=== PATIENT | male | born 1945 | race Caucasian/White ===

== ENCOUNTER 2019-06-19 13:17 | Inpatient (IN) | payer OTHER ==
[2019-06-19] MEDS ORDERED: ACETAMINOPHEN 500 MG TAB ONE (13:46)
[2019-06-19 15:29] LABS: Urine Bacteria <20 /HPF (NONE SEEN); Urine Culture Reflex Order REFLEXED; Urine Mucus 1+ /HPF (NONE SEEN); Urine RBC <5 /HPF (NONE SEEN)
[2019-06-19 16:53] LABS: Absolute Lymphocytes (CBC) 0.8 K/uL (0.7-4.9); Basophils % 0.2 % (0-1.3); Hematocrit 43.9 % (39.6-49.0); Lymphocytes % 5.9 % (15.3-44.8); MPV 7.3 fL (7.6-11.3); RBC Red Blood Cell Count 4.59 M/uL (4.33-5.43)
[2019-06-19 17:03] LABS: Albumin 3.9 g/dL (3.4-5.0); Bilirubin Total 0.4 mg/dL (0.2-1.0); Potassium 3.9 mmol/L (3.5-5.1); Protein, Total 7.9 g/dL (6.4-8.2)
[2019-06-19 17:37] LABS: Urine Bacteria 20-50 /HPF (NONE SEEN); Urine Culture Reflex Order NOT NEEDED; Urine Mucus 1+ /HPF (NONE SEEN); Urine RBC <5 /HPF (NONE SEEN)
[2019-06-19] MEDS ORDERED: Levofloxacin 750mg IV 750 MG/150 ML BAG IV ONE (17:39)
--- NOTE | 2019-06-19 17:40 | RAD REPORT ---
EXAM DESCRIPTION: RAD - Chest Single View - 06/19/2019 4:58 pm CLINICAL HISTORY: ALL OVER PAIN Chest pain. COMPARISON: No comparisons FINDINGS: Portable technique limits examination quality. The lungs are grossly clear. The heart is normal in size. No displaced fractures. IMPRESSION: No acute intrathoracic process suspected.
[2019-06-19] MEDS ORDERED: ACETAMINOPHEN 500 MG TAB PO PRN (20:32)
[2019-06-19] MEDS ORDERED: ONDANSETRON 4 MG/2 ML VIAL IV PRN (20:32)
[2019-06-19] MEDS ORDERED: MORPHINE 2 MG/ML SYR IV PRN (20:32)
[2019-06-19] MEDS ORDERED: CEFTRIAXONE 1 GM/NS 50 ML 1 GM/50 ML BAG IV SCH (21:00)
--- NOTE | 2019-06-19 21:18 | P.HP ---
Certification for Inpatient Patient admitted to: Observation With expected LOS: <2 Midnights Patient will require the following post-hospital care: None Practitioner: I am a practitioner with admitting privileges, knowledge of patient current condition, hospital course, and medical plan of care. Services: Services provided to patient in accordance with Admission requirements found in Title 42 Section 412.3 of the Code of Federal Regulations Patient History Date of Service: 06/19/19 Reason for admission: UTI/Fever/sepsis History of Present Illness: Patient is a 73-year-old gentleman who came to the hospital with fever and dysuria. He has been having some pain and burning when urinating. Patient had a leukocytosis, and his procalcitonin level was elevated. Patient is also having some flank tenderness. Patient with multiple comorbidities and he will be admitted to the hospital for further evaluation. Will continue monitoring his sepsis markers and make sure his procalcitonin level is trending downward prior to discharge. Allergies Penicillins Allergy (Verified 06/19/19 15:57) Hives Home Medications: Amlodipine [Norvasc*] 5 mg PO DAILY 06/19/19 Escitalopram Oxalate [Lexapro] 10 mg PO DAILY 06/19/19 Metoprolol Tartrate [Lopressor*] 50 mg PO DAILY 06/19/19 Trazodone [Desyrel*] 50 mg PO BEDTIME 06/19/19 Sulfamethoxazole/Trimethoprim [Bactrim 400-80 mg Tablet] 1 each PO Q12H #14 tablet 06/21/19 - Past Medical/Surgical History -: Depression -: Hypertension -: Arrhythmia -: Left shoulder surgery - Family History Father Medical History: Stroke Mother Medical History: Heart disease - Social History Smoking Status: Never smoker Alcohol use: No CD- Drugs: No Review of Systems 10-point ROS is otherwise unremarkable Physical Examination - Vital Signs Temperature: 99 F Blood Pressure: 100/70 Pulse: 110 Respirations: 18 Pulse Ox (%): 94 - Physical Exam General: Alert, In no apparent distress, Oriented x3 HEENT: Atraumatic, Normocephalic Neck: Supple, 2+ carotid pulse no bruit, JVD not distended, No Thyromegaly Respiratory: Clear to auscultation bilaterally, Normal air movement Cardiovascular: Regular rate/rhythm, Normal S1 S2, No murmurs Gastrointestinal: Normal bowel sounds, Soft and benign, Non-distended, No tenderness Musculoskeletal: No clubbing, No swelling, Tenderness (Flank tenderness) Integumentary: No rashes, No breakdown Neurological: Normal gait, Normal speech, Normal strength at 5/5 x4 extr, Normal tone, Sensation intact, Cranial nerves 3-12 intact - Studies Laboratory Data (last 24 hrs) 06/19/19 16:30: Sodium 131 L, Potassium 3.9, BUN 19 H, Creatinine 1.00, Glucose 125 H, Total Bilirubin 0.4, AST 17, ALT 24, Alkaline Phosphatase 77 06/19/19 16:30: WBC 14.0 H, Hgb 14.6, Hct 43.9, Plt Count 224 Assessment & Plan - Problems (Diagnosis) (1) UTI (urinary tract infection) Current Visit: Yes Status: Acute (2) Sepsis Current Visit: Yes Status: Acute (3) Fever Current Visit: Yes Status: Acute (4) Elevated procalcitonin Current Visit: Yes Status: Acute (5) Leukocytosis Current Visit: Yes Status: Acute - Plan Plan: 1. IV hydration 2. IV antibiotics 3. Recheck procalcitonin level 4. Await blood culture and urine culture results; concerning that patient may be bacteremic with procalcitonin level being elevated. 5. Strict blood pressure and blood sugar control 6. Monitor hemodynamics closely 7. GI and DVT prophylaxis Discharge Plan: Home Plan to discharge in: Greater than 2 days - Advance Directives Does patient have a Living Will: No Does patient have a Durable POA for Healthcare: No - Code Status/Comfort Care Code Status Assessed: Yes Code Status: Full Code Critical Care: No Time Spent Managing PTS Care (In Minutes): 45
[2019-06-19 23:11] VITALS: BMI 26.6
[2019-06-19] MEDS: NA CHLORIDE 0.9% 1,000 ML IV SCH (23:32)
[2019-06-19] MEDS ORDERED: CEFTRIAXONE/SWI 1gm 1 GM/10 ML SYR ONE (23:36)
[2019-06-20] MEDS ORDERED: TRAZODONE 50 MG TABLET PO ONE (00:46)
--- NOTE | 2019-06-20 03:44 | ER ---
Nurse's Notes [facility] Name: Will Zavala Age: 73 yrs Sex: Male : 1945 Arrival Date: 06/19/2019 Time: 13:21 Bed 6 Private MD: Diagnosis: Urinary tract infection, site not specified;Fever, unspecified Presentation: 06/18 13:26 Chief complaint: Spouse and/or significant other states: Fever, body aches and burning jl7 with urination since this morning, denies cough, denies N/V/D. Coronavirus screen: Proceed with normal triage. Patient denies a cough. Patient denies shortness of breath or difficulty breathing. Patient reports a measured and/or subjective temperature greater than 100.4F. Patient denies travel on a cruise ship or to a country the [facility] currently lists as an affected area. Patient denies contact with known and/or suspected case of COVID-19. Ebola Screen: No symptoms or risks identified at this time. Initial Sepsis Screen: Does the patient meet any 2 criteria? No. Patient's initial sepsis screen is negative. Does the patient have a suspected source of infection? Yes: Dysuria/Frequency/Urgency/UTI. Risk Assessment: Do you want to hurt yourself or someone else? Patient reports no desire to harm self or others. Onset of symptoms was June 19, 2019. Care prior to arrival: None. 13:26 Method Of Arrival: Wheelchair jl7 13:26 Acuity: KILO 3 jl7 Triage Assessment: 13:35 General: Appears in no apparent distress. uncomfortable, Behavior is calm, cooperative, jl7 appropriate for age. Pain: Complains of pain in all over Pain currently is 4 out of 10 on a pain scale. Neuro: Level of Consciousness is awake, alert, obeys commands, Oriented to person, place, time, situation. Cardiovascular: Patient's skin is warm and dry. Respiratory: Airway is patent Respiratory effort is even, unlabored, Respiratory pattern is regular, symmetrical. GI: Patient currently denies diarrhea, nausea, vomiting. : Reports burning with urination. Derm: Skin is pink, warm \T\ dry. Historical: - Allergies: 13:35 PENICILLINS; jl7 - Home Meds: 13:35 metoprolol tartrate 50 mg Oral tab [Active]; amlodipine oral [Active]; Lexapro Oral jl7 [Active]; Trazodone Oral [Active]; - PMHx: 13:35 Hypertension; Depression; Irregular heart rate; jl7 - Immunization history:: Adult Immunizations up to date. - Social history:: Smoking status: Patient denies any tobacco usage or history of. Screenin:39 Abuse screen: Denies threats or abuse. Denies injuries from another. Nutritional hb screening: No deficits noted. Tuberculosis screening: No symptoms or risk factors identified. Fall Risk None identified. Assessment: 15:00 General: Appears in no apparent distress. Behavior is calm, cooperative. Pain: Pain hb currently is 5 out of 10 on a pain scale. Neuro: Level of Consciousness is awake, alert, obeys commands, Oriented to person, place, time, situation. Cardiovascular: Heart tones S1 S2 present Capillary refill < 3 seconds. Respiratory: Airway is patent Respiratory effort is even, unlabored, Respiratory pattern is regular, symmetrical, Breath sounds are clear bilaterally. GI: No signs and/or symptoms were reported involving the gastrointestinal system. : No signs and/or symptoms were reported regarding the genitourinary system. EENT: No signs and/or symptoms were reported regarding the EENT system. Derm: Skin is pink, warm \T\ dry. Musculoskeletal: Reports pain all over. 16:00 Reassessment: Patient appears in no apparent distress at this time. No changes from hb previously documented assessment. Patient and/or family updated on plan of care and expected duration. Pain level reassessed. Patient is alert, oriented x 3, equal unlabored respirations, skin warm/dry/pink. 16:52 Reassessment: Patient appears in no apparent distress at this time. Patient and/or hb family updated on plan of care and expected duration. Pain level reassessed. Patient is alert, oriented x 3, equal unlabored respirations, skin warm/dry/pink. 18:00 Reassessment: Patient appears in no apparent distress at this time. Patient and/or hb family updated on plan of care and expected duration. Pain level reassessed. Patient is alert, oriented x 3, equal unlabored respirations, skin warm/dry/pink. 18:46 Reassessment: Patient appears in no apparent distress at this time. [facility] to verify pt information at this time, awaiting a call back for acceptance for Doc to Doc and Nurse to Nurse. 19:10 General: Appears in no apparent distress. comfortable, Behavior is calm, cooperative, rr5 appropriate for age, Reports fever for awaiting for the acceptance to [facility] or to be admitted in our hospital.. 19:10 Pain: Denies pain. Neuro: Level of Consciousness is awake, alert, obeys commands, rr5 Oriented to person, place, time, situation. Cardiovascular: Capillary refill < 3 seconds Patient's skin is warm and dry. Respiratory: Airway is patent Respiratory effort is even, unlabored, Respiratory pattern is regular, symmetrical. GI: No signs and/or symptoms were reported involving the gastrointestinal system. : Reports burning with urination. EENT: No signs and/or symptoms were reported regarding the EENT system. Derm: Skin is pink, warm \T\ dry. Skin temperature is warm. Musculoskeletal: Circulation, motion, and sensation intact. Capillary refill < 3 seconds, Reports episodes of pain all over the body. 20:30 Reassessment: Patient appears in no apparent distress at this time. Patient is alert, rr5 oriented x 3, equal unlabored respirations, skin warm/dry/pink. ED provider decided to admit patient. patient agreed for the plan of care. 21:35 Reassessment: Patient appears in no apparent distress at this time. Patient is alert, rr5 oriented x 3, equal unlabored respirations, skin warm/dry/pink. awaiting for transfer to 4 th floor. 22:10 Reassessment: Patient appears in no apparent distress at this time. Patient is alert, rr5 oriented x 3, equal unlabored respirations, skin warm/dry/pink. transferred to 4th floor awake conscious and coherent not in distress. Vital Signs: 13:26 BP 137 / 76; Pulse 95; Resp 17; Temp 102.9; Pulse Ox 94% ; Pain 4/10; jl7 14:47 Temp 99.7; jl7 15:45 BP 122 / 67; Pulse 84; Resp 20; Pulse Ox 99% on R/A; hb 16:52 BP 123 / 70; Pulse 89; Resp 15; Pulse Ox 98% on R/A; hb 18:00 BP 118 / 62; Pulse 62; Resp 15; Pulse Ox 96% on R/A; hb 19:20 BP 114 / 75; Pulse 69; Resp 16; Pulse Ox 99% on R/A; rr5 20:10 BP 121 / 70; Pulse 63; Resp 14; Pulse Ox 96% ; rr5 21:14 BP 119 / 63; Pulse 65; Resp 16; Temp 98; Pulse Ox 98% on R/A; rr5 22:09 BP 118 / 67; Pulse 65; Resp 16; Temp 98; Pulse Ox 97% ; rr5 ED Course: 13:21 Patient arrived in ED. ag5 13:32 Triage completed. jl7 13:35 Arm band placed on right wrist. jl7 15:06 Roddy Nathan PA is PHCP. jmm 15:06 Tai Kemp MD is Attending Physician. jmm 16:19 Melissa Gan, RN is Primary Nurse. hb 16:30 Inserted saline lock: 20 gauge 24 gauge antecubital area, using aseptic technique. hb Blood collected. 16:40 Patient has correct armband on for positive identification. Bed in low position. Call hb light in reach. Side rails up X 1. 17:07 Chest Single View In Process Unspecified. EDMS 19:13 Primary Nurse role handed off by Melissa Gan, RN 19:21 Dale Vanegas, RN is Primary Nurse. rr5 19:58 Klaudia Burciaga MD is Hospitalizing Provider. [facility] 21:30 No provider procedures requiring assistance completed. Patient admitted, IV remains in rr5 place. intact, No redness/swelling at site. Administered Medications: 13:45 Drug: Tylenol 1000 mg Route: PO; jl7 14:47 Follow up: Temp 99.7; Response: No adverse reaction; Temperature is decreased jl7 18:08 Drug: LevaQUIN 750 mg Volume: 150 ml; Route: IVPB; Infused Over: 90 mins; Site: right hb antecubital; 19:50 Follow up: Response: No adverse reaction; IV Status: Completed infusion; IV Intake: rr5 150ml Intake: 19:50 IV: 150ml; Total: 150ml. rr5 Outcome: 19:59 Decision to Hospitalize by Provider. [facility] 22:09 Admitted to Tele accompanied by denise, via stretcher, room 403, with chart, Report rr5 called to RAHEEM 22:09 Condition: stable 22:09 Instructed on the need for admit. 22:26 Patient left the ED. rr5 Signatures: Dispatcher [employer] EDMS Elver King RN RN Roddy Steen PA PA jmm Baxter, Heather RN RN Jacob Hernadez RN RN jl7 Dale Vanegas RN RN rr5 Paul Bailey ag5 Corrections: (The following items were deleted from the chart) :28 19:10 General: Appears in no apparent distress. comfortable, Behavior is calm, rr5 cooperative, appropriate for age, awaiting for the acceptance to [facility] or to be admitted in our hospital.. rr5 :28 19:10 : No signs and/or symptoms were reported regarding the genitourinary system. [id number]
--- NOTE | 2019-06-20 03:45 | EDPHYS ---
Physician Documentation [facility] Name: Will Zavala Age: 73 yrs Sex: Male : 1945 Arrival Date: 06/19/2019 Time: 13:21 Bed 6 Private MD: ED Physician Tai Kemp HPI: 06/18 15:22 This 73 yrs old Male presents to ER via Wheelchair with complaints of Pain jmm All Over. 15:22 body aches, painful urination. Onset: The symptoms/episode began/occurred today. The jmm patient has not experienced similar symptoms in the past. This is a 73 year old male with a history of htn that presents to the ED with complaints of body aches and painful urination beginning earlier today. Denies vomiting, chest pain or shortness of breath. . Historical: - Allergies: 13:35 PENICILLINS; jl7 - Home Meds: 13:35 metoprolol tartrate 50 mg Oral tab [Active]; amlodipine oral [Active]; Lexapro Oral jl7 [Active]; Trazodone Oral [Active]; - PMHx: 13:35 Hypertension; Depression; Irregular heart rate; jl7 - Immunization history:: Adult Immunizations up to date. - Social history:: Smoking status: Patient denies any tobacco usage or history of. ROS: 15:22 Cardiovascular: Negative for chest pain, palpitations, and edema, Respiratory: Negative jmm for shortness of breath, cough, wheezing, and pleuritic chest pain. 15:22 Constitutional: Positive for body aches, chills, fatigue. 15:22 : Positive for urinary symptoms. 15:22 All other systems are negative. Exam: 15:22 Constitutional: This is a well developed, well nourished patient who is awake, alert, jmm and in no acute distress. Head/Face: atraumatic. Eyes: EOMI, no conjunctival erythema appreciated ENT: Moist Mucus Membranes Neck: Trachea midline, Supple Chest/axilla: Normal chest wall appearance and motion. Cardiovascular: Regular rate and rhythm. No edema appreciated Respiratory: Normal respirations, no respiratory distress appreciated Abdomen/GI: Non distended, soft Back: Normal ROM Skin: General appearance color normal MS/ Extremity: Moves all extremities, no obvious deformities appreciated, no edema noted to the lower extremities Neuro: Awake and alert, normal gait Psych: Behavior is normal, Mood is normal, Patient is cooperative and pleasant 15:22 Abdomen/GI: Inspection: abdomen appears normal, Bowel sounds: normal, Palpation: abdomen is soft and non-tender, in all quadrants. Vital Signs: 13:26 BP 137 / 76; Pulse 95; Resp 17; Temp 102.9; Pulse Ox 94% ; Pain 4/10; jl7 14:47 Temp 99.7; jl7 15:45 BP 122 / 67; Pulse 84; Resp 20; Pulse Ox 99% on R/A; hb 16:52 BP 123 / 70; Pulse 89; Resp 15; Pulse Ox 98% on R/A; hb 18:00 BP 118 / 62; Pulse 62; Resp 15; Pulse Ox 96% on R/A; hb 19:20 BP 114 / 75; Pulse 69; Resp 16; Pulse Ox 99% on R/A; rr5 20:10 BP 121 / 70; Pulse 63; Resp 14; Pulse Ox 96% ; rr5 21:14 BP 119 / 63; Pulse 65; Resp 16; Temp 98; Pulse Ox 98% on R/A; rr5 22:09 BP 118 / 67; Pulse 65; Resp 16; Temp 98; Pulse Ox 97% ; rr5 MDM: 15:17 Patient medically screened. [facility] 19:53 Data reviewed: vital signs, nurses notes. Counseling: I had a detailed discussion with makenzie the patient and/or guardian regarding: the historical points, exam findings, and any diagnostic results supporting the discharge/admit diagnosis, lab results, radiology results, the need for further work-up and treatment in the hospital. [facility] course[facility]. Patient has preference for admission here. I discussed the patient with Dr. Burciaga whom accepted admission. . 06/18 14:48 Order name: Urine Microscopic Only [facility] 06/18 14:59 Order name: Urine Microscopic Only; Complete Time: 15:43 [facility] 06/18 15:02 Order name: Urine Dipstick--Ancillary (enter results) 06/18 15:19 Order name: CBC with Diff [facility] 06/18 15:19 Order name: CMP [facility] 06/18 15:19 Order name: Blood Culture Adult (2) [facility] 06/18 15:20 Order name: Procalcitonin [facility] 06/18 15:20 Order name: Lactate [facility] 06/18 15:30 Order name: Urine Culture [facility] 06/18 16:40 Order name: Comprehensive Metabolic Panel; Complete Time: 17:18 [facility] 06/18 16:40 Order name: Procalcitonin; Complete Time: 17:59 [facility] 06/18 16:40 Order name: Lactate; Complete Time: 17:18 [facility] 06/18 16:40 Order name: CBC with Automated Diff [facility] 06/18 16:40 Order name: Blood Culture [facility] 06/18 14:48 Order name: Urine Dipstick-Ancillary (obtain specimen); Complete Time: 16:39 [facility] 06/18 15:19 Order name: Saline Lock; Complete Time: 16:39 [facility] 06/18 15:43 Order name: Chest Single View XRAY [facility] 06/18 15:59 Order name: Chest Single View; Complete Time: 17:49 [facility] 06/18 17:14 Order name: Urine Microscopic Only; Complete Time: 17:49 [facility] 06/18 17:15 Order name: Urine Culture [facility] 06/18 17:32 Order name: Blood Culture [facility] Administered Medications: 13:45 Drug: Tylenol 1000 mg Route: PO; jl7 14:47 Follow up: Temp 99.7; Response: No adverse reaction; Temperature is decreased jl 18:08 Drug: LevaQUIN 750 mg Volume: 150 ml; Route: IVPB; Infused Over: 90 mins; Site: right hb antecubital; 19:50 Follow up: Response: No adverse reaction; IV Status: Completed infusion; IV Intake: rr5 150ml Disposition: 06/19 08:21 Co-signature as Attending Physician, Tai Kemp MD I agree with the assessment and kdr plan of care. Disposition: 06/19/19 19:59 Hospitalization ordered by Klaudia Burciaga for Observation. Preliminary diagnosis are Urinary tract infection, site not specified, Fever, unspecified. - Bed requested for Telemetry/MedSurg (observation). - Status is Observation. rr5 - Condition is Stable. - Problem is new. - Symptoms are unchanged. Signatures: Dispatcher [employer] Tai Zayas MD MD kdr Mickail, Joel, PA PA [facility] Mavis Delgado, RN RN tl1 Melissa Gan RN RN Jacob Hernadez, RN RN jl7 Dale Vanegas RN RN rr5 Corrections: (The following items were deleted from the chart) 06/18 16:21 15:59 Chest Single View ordered. [facility] EDMS 21:21 19:59 Hospitalization Ordered by Klaudia Burciaga MD for Observation. Preliminary tl1 diagnosis is Urinary tract infection, site not specified; Fever, unspecified. Bed requested for Telemetry/MedSurg (observation). Status is Observation. Condition is Stable. Problem is new. Symptoms are unchanged. [facility] 22:26 21:21 06/19/2019 19:59 Hospitalization Ordered by Klaudia Burciaga MD for Observation. rr5 Preliminary diagnosis is Urinary tract infection, site not specified; Fever, unspecified. Bed requested for Telemetry/MedSurg (observation). Status is Observation. Condition is Stable. Problem is new. Symptoms are unchanged. tl1
[2019-06-20 04:10] LABS: Urine Blood NEGATIVE (NEG); Urine Glucose NEGATIVE (NEG); Urine Protein NEGATIVE (NEG); Urine Specific Gravity 1.015 (1.005-1.030)
[2019-06-20 04:25] LABS: Absolute Lymphocytes (CBC) 1.2 K/uL (0.7-4.9); Basophils % 0.4 % (0-1.3); Hematocrit 38.9 % (39.6-49.0); Lymphocytes % 10.5 % (15.3-44.8); MPV 7.4 fL (7.6-11.3); RBC Red Blood Cell Count 4.09 M/uL (4.33-5.43)
[2019-06-20 04:50] LABS: Bilirubin Total 0.4 mg/dL (0.2-1.0); Potassium 4.1 mmol/L (3.5-5.1); Protein, Total 6.3 g/dL (6.4-8.2)
--- NOTE | 2019-06-20 07:52 | P.PN ---
Subjective Date of Service: 06/20/19 Subjective: No new changes, No C/O voiced, Improving Review of Systems 10-point ROS is otherwise unremarkable Physical Examination - Vital Signs Temperature: 99 F Blood Pressure: 100/70 Pulse: 110 Respirations: 18 Pulse Ox (%): 94 - Physical Exam General: Alert, In no apparent distress, Oriented x3 Respiratory: Clear to auscultation bilaterally, Normal air movement Cardiovascular: Regular rate/rhythm, Normal S1 S2, No murmurs Gastrointestinal: Normal bowel sounds, Soft and benign, Non-distended, No tenderness Musculoskeletal: No clubbing, No swelling, No tenderness Neurological: Normal speech, Normal tone - Studies Laboratory Data (last 24 hrs) 06/19/19 16:30: Sodium 131 L, Potassium 3.9, BUN 19 H, Creatinine 1.00, Glucose 125 H, Total Bilirubin 0.4, AST 17, ALT 24, Alkaline Phosphatase 77 06/19/19 16:30: WBC 14.0 H, Hgb 14.6, Hct 43.9, Plt Count 224 06/19/19 15:19: Sodium Cancelled, Potassium Cancelled, BUN Cancelled, Creatinine Cancelled, Glucose Cancelled, Total Bilirubin Cancelled, AST Cancelled, ALT Cancelled, Alkaline Phosphatase Cancelled 06/19/19 15:19: WBC Cancelled, Hgb Cancelled, Hct Cancelled, Plt Count Cancelled Medications List Reviewed: Yes Assessment & Plan - Problems (Diagnosis) (1) UTI (urinary tract infection) Current Visit: Yes Status: Acute (2) Sepsis Current Visit: Yes Status: Acute (3) Fever Current Visit: Yes Status: Acute (4) Elevated procalcitonin Current Visit: Yes Status: Acute (5) Leukocytosis Current Visit: Yes Status: Acute - Plan Plan: Continue with current plan of care as mentioned below: 1. Continue with IV hydration 2. Continue withIV antibiotics 3. Recheck procalcitonin level 4. Await blood culture and urine culture results; concerning that patient may be bacteremic with procalcitonin level being elevated. 5. Strict blood pressure and blood sugar control 6. Monitor hemodynamics closely 7. GI and DVT prophylaxis Discharge Plan: Home Plan to discharge in: Greater than 2 days - Advance Directives Does patient have a Living Will: No Does patient have a Durable POA for Healthcare: No - Code Status/Comfort Care Code Status: Full Code Critical Care: No Time Spent Managing PTS Care (In Minutes): 35
[2019-06-20] MEDS: CEFTRIAXONE/SWI 1gm 1 GM/10 ML SYR IV SCH ×2 (08:11→21:21)
[2019-06-20 10:40] VITALS: O2SAT 95
[2019-06-20] MEDS: NA CHLORIDE 0.9% 1,000 ML IV SCH ×2 (11:47→21:21)
[2019-06-20 16:22] LABS: Blood Morphology Comment NOT SEEN (NOT SEEN); Platelet Estimate ADEQ; Urine White Blood Cell Casts OK
[2019-06-21] MEDS ORDERED: SMZ./TMP. 800/160 MG TABLET PO ONE (07:34)
--- NOTE | 2019-06-21 07:42 | P.DS ---
Discharge Date: 06/21/19 Disposition: ROUTINE DISCHARGE Discharge Condition: GOOD Reason for Admission: UTI/Fever/sepsis - Problems (1) UTI (urinary tract infection) Current Visit: Yes Status: Acute (2) Sepsis Current Visit: Yes Status: Acute (3) Fever Current Visit: Yes Status: Acute (4) Elevated procalcitonin Current Visit: Yes Status: Acute (5) Leukocytosis Current Visit: Yes Status: Acute Brief History of Present Illness: Patient is a 73-year-old gentleman who came to the hospital with fever and dysuria. He has been having some pain and burning when urinating. Patient had a leukocytosis, and his procalcitonin level was elevated. Patient is also having some flank tenderness. Patient with multiple comorbidities and he will be admitted to the hospital for further evaluation. Will continue monitoring his sepsis markers and make sure his procalcitonin level is trending downward prior to discharge. Hospital Course: Patient did well during hospital stay. Patient is growing E coli from his urine cultures. Blood cultures showed contamination of coag-negative staph. At this time, patient is stable for discharge home with outpatient follow-up. Patient needs to see PCP and Urology as an outpatient. Vital Signs/Physical Exam: Temp Pulse Resp BP Pulse Ox 99 F 110 H 18 100/70 94 06/21/19 07:40 06/21/19 07:40 06/21/19 07:40 06/21/19 07:40 06/21/19 07:40 General: Alert, In no apparent distress, Oriented x3 Laboratory Data at Discharge: WBC 11.6 K/uL (4.3-10.9) H D 06/20/19 04:00 Hgb 13.0 g/dL (13.6-17.9) L 06/20/19 04:00 Hct 38.9 % (39.6-49.0) L 06/20/19 04:00 Plt Count 201 K/uL (152-406) 06/20/19 04:00 Sodium 138 mmol/L (136-145) 06/20/19 04:00 Potassium 4.1 mmol/L (3.5-5.1) 06/20/19 04:00 BUN 19 mg/dL (7-18) H 06/20/19 04:00 Creatinine 0.84 mg/dL (0.55-1.3) 06/20/19 04:00 Glucose 106 mg/dL (74-106) 06/20/19 04:00 Total Bilirubin 0.4 mg/dL (0.2-1.0) 06/20/19 04:00 AST 10 U/L (15-37) L 06/20/19 04:00 ALT 20 U/L (12-78) 06/20/19 04:00 Alkaline Phosphatase 62 U/L (45-117) 06/20/19 04:00 Home Medications: Amlodipine [Norvasc*] 5 mg PO DAILY 06/19/19 Escitalopram Oxalate [Lexapro] 10 mg PO DAILY 06/19/19 Metoprolol Tartrate [Lopressor*] 50 mg PO DAILY 06/19/19 Trazodone [Desyrel*] 50 mg PO BEDTIME 06/19/19 Sulfamethoxazole/Trimethoprim [Bactrim 400-80 mg Tablet] 1 each PO Q12H #14 tablet 06/21/19 New Medications: Sulfamethoxazole/Trimethoprim [Bactrim 400-80 mg Tablet] 1 each PO Q12H #14 tablet Patient Discharge Instructions: OK TO DC IV AND DC HOME. FOLLOW-UP WITH PRIMARY CARE PROVIDER IN 1-2 WEEKS. FOLLOW-UP WITH UROLOGY IN 1-2 WEEKS. RETURN TO THE ER IF symptoms worsen. CALL or TEXT DR. GARCIA AT [phone] IF ANY QUESTIONS REGARDING HOSPITAL STAY. PLEASE CALL THE FLOOR AT [phone] IF ANY MEDICATION OR NURSING QUESTIONS. Diet: AHA Activity: Fall precautions Time spent managing pt's care (in minutes): 35
[2019-06-21 08:28] VITALS: BP 135/65; TEMP 97.3
[2019-06-21] MEDS ORDERED: AMLODIPINE 5 MG TAB PO SCH (09:00)
[2019-06-21] MEDS ORDERED: ESCITALOPRAM 20 MG TAB PO SCH (09:00)
[2019-06-21] MEDS ORDERED: METOPROLOL TAR 50 MG TAB PO SCH (09:00)
[2019-06-21] MEDS ORDERED: TRAZODONE 50 MG TABLET PO SCH (21:00)
[2019-06-21] MEDS ORDERED: TRAZODONE 50 MG TABLET PO ONE (21:35)
== END 2019-06-21 09:15 | disposition home or self-care (01) | DRG 872 ==
LOC: ER 13:17 → ERHOLD 20:32 → 4TH 22:09 → 2ND 22:19 → 4TH 22:21 → OBSVTOIN 06-20 15:16
PROVIDERS: ADMIT Hospitalist; ATTEND Hospitalist
DX: A41.9 Sepsis, unspecified organism (principal); N39.0 Urinary tract infection, site not specified; I10 Essential (primary) hypertension; B96.20 Unspecified Escherichia coli [E. coli] as the cause of diseases classified elsewhere; Z88.0 Allergy status to penicillin; Z79.899 Other long term (current) drug therapy
CPT/HCPCS: 36415; 71045; 80053; 81003; 81015; 82947; 83605; 84145; 85025; 87040; 87077; 87086; 87088; 87186; 87205; 96365; 96366; 99285; G0378; J0696; J7030

== ENCOUNTER 2020-05-24 11:33 | Emergency (ER) | payer OTHER ==
--- NOTE | 2020-05-24 12:30 | EDPHYS ---
Physician Documentation [facility] Name: Will Zavala Age: 74 yrs Sex: Male : 1945 Arrival Date: 05/24/2020 Time: 11:35 Bed 19 Private MD: ED Physician Amor Arteaga HPI: 05/24 12:07 This 74 yrs old Male presents to ER via Ambulatory with complaints of Mouth pm1 /Dental Pain, Fever. 12:07 The patient presents with pain, swelling. The problem is located in the lower left pm1 cuspid, lower left lateral incisor, lower left central incisor, lower right central incisor, lower right lateral incisor and lower right cuspid. Onset: The symptoms/episode began/occurred 3 day(s) ago. Duration: The symptoms are continuous. Modifying factors: The symptoms are alleviated by nothing, the symptoms are aggravated by nothing. Associated signs and symptoms: Pertinent positives: fever, Pertinent negatives: inability to eat. Severity of symptoms: in the emergency department the symptoms are actually worse. The patient has not experienced similar symptoms in the past. The patient has not recently seen a physician. Historical: - Allergies: 12:02 PENICILLINS; sv - PMHx: 12:02 Depression; Hypertension; Irregular heart rate; sv - PSHx: 12:02 Prostate; sv - Immunization history:: Client reports receiving the 2nd dose of the Covid vaccine, Client reports receiving the 1st dose of the Covid vaccine, Flu vaccine is up to date. - Social history:: Smoking status: Patient reports the use of cigarette tobacco products, denies chronic smoking, but will smoke occasionally. ROS: 12:07 Eyes: Negative for injury, pain, redness, and discharge. pm1 12:07 Neck: Negative for injury, pain, and swelling, Respiratory: Negative for shortness of breath, cough, wheezing, and pleuritic chest pain. 12:07 Back: Negative for injury and pain, MS/Extremity: Negative for injury and deformity, Skin: Negative for injury, rash, and discoloration, Neuro: Negative for headache, weakness, numbness, tingling, and seizure. 12:07 Constitutional: Positive for fever, Decreased appetite. 12:07 ENT: Positive for dental pain, Negative for sore throat, difficulty swallowing, difficulty handling secretions, hoarseness. 12:07 Cardiovascular: Positive for palpitations, Negative for chest pain. 12:07 Abdomen/GI: Positive for constipation. Exam: 12:07 Constitutional: This is a well developed, well nourished patient who is awake, alert, pm1 and in no acute distress. Head/Face: Normocephalic, atraumatic. 12:07 Skin: Warm, dry with normal turgor. Normal color with no rashes, no lesions, and no evidence of cellulitis. MS/ Extremity: Pulses equal, no cyanosis. Neurovascular intact. Full, normal range of motion. 12:07 ENT: Dental exam: abscess, is not appreciated, cellulitis, is not appreciated, dental caries, that is moderate, diffusely, specifically in the lower left cuspid (#22), lower left lateral incisor (#23), lower left central incisor (#24), lower right central incisor (#25), lower right lateral incisor (#26) and lower right cuspid (#27), gum swelling, that is mild, specifically in the lower left cuspid (#22), lower left lateral incisor (#23), lower left central incisor (#24), lower right central incisor (#25), lower right lateral incisor (#26) and lower right cuspid (#27), missing teeth, diffusely, Negative for trismus. 12:07 Neck: Exam negative for acute changes, ROM/movement: is normal, is supple, without pain, no range of motions limitations, no meningismus, no nuchal rigidity, negative Brudzinski's sign, negative Kernig's sign. 12:07 Cardiovascular: Exam negative for acute changes, Rate: normal, Rhythm: regular, Pulses: no pulse deficits are appreciated, Heart sounds: normal, normal S1and S2. 12:07 Respiratory: Exam negative for acute changes, respiratory distress, shortness of breath, Breath sounds: are clear throughout. 12:07 Abdomen/GI: Inspection: abdomen appears normal, Palpation: abdomen is soft and non-tender, in all quadrants. 12:07 Neuro: Exam negative for acute changes, Orientation: is normal, Mentation: is normal, Motor: is normal, moves all fours. Vital Signs: 11:59 BP 140 / 77; Pulse 85; Resp 16; Temp 100.4(O); Weight 77.11 kg; Height 5 ft. 7 in. sv (170.18 cm); Pain 0/10; 12:56 BP 138 / 78; Pulse 84; Resp 18; Temp 99.9; Pulse Ox 100% on R/A; bw 11:59 Body Mass Index 26.63 (77.11 kg, 170.18 cm) sv MDM: 11:51 Patient medically screened. pm1 12:06 Data reviewed: vital signs. pm1 12:11 Refusal of service: The patient/guardian displays adequate decision making capability pm1 and despite a detailed discussion of alternatives, benefits, risks, and consequences refuses: His mentioned that he has been having some palpations for the the past 3 days. Patient refuses cardiac workup (told him it includes EKG, chest x-ray, and labs) because he said he is not having any palpitations today. He just wants the antibiotics for his dental issue. I informed him that I would be happy to work up his palpitations at anytime. 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 Administered Medications: 12:24 Drug: Clindamycin 600 mg Route: IM; Site: right deltoid; bw 12:50 Follow up: Response: No adverse reaction bw 12:25 Drug: [place] (HYDROcodone-acetaminophen) (7.5 mg-325 mg) 1 tabs Route: PO; bw 12:50 Follow up: Response: No adverse reaction bw 12:25 Drug: Tylenol 650 mg Route: PO; bw 12:50 Follow up: Response: No adverse reaction bw Disposition: 14:24 Co-signature as Attending Physician, Amor Arteaga MD. rn Disposition: 05/24/20 12:29 Discharged to Home. Impression: Dental caries, Gingivitis and periodontal diseases. - Condition is Stable. - Discharge Instructions: Dental Pain, Gingivitis. - Prescriptions for chlorhexidine gluconate 0.12 % Mucous Membrane mouthwash - place 15 milliliter by MUCOUS MEMBRANE route 2 times per day after brushing teeth, swish in mouth for 30 seconds then spit out; 240 milliliter. Clindamycin HCl 300 mg Oral Capsule - take 1 capsule by ORAL route every 6 hours for 10 days; 40 capsule. Tramadol 50 mg Oral Tablet - take 1 tablet by ORAL route every 8 hours as needed; 12 tablet. - Medication Reconciliation Form, Thank You Letter, Antibiotic Education, Prescription Opioid Use form. - Follow up: Emergency Department; When: As needed; Reason: Worsening of condition. Follow up: Private Physician; When: 2 - 3 days; Reason: Recheck today's complaints, Continuance of care, Re-evaluation by your physician. - Problem is new. - Symptoms have improved. Signatures: Katarina Jacobs RN RN Amor Palma MD MD rn Marinas, Patrick, NP MEDICARE INSURANCE SPECIALIST pm1 Sharp, CAMI Baugh RN bw Corrections: (The following items were deleted from the chart) 12:57 12:29 05/24/2020 12:29 Discharged to Home. Impression: Dental caries; Gingivitis and bw periodontal diseases. Condition is Stable. Forms are Medication Reconciliation Form, Thank You Letter, Antibiotic Education, Prescription Opioid Use. Follow up: Emergency Department; When: As needed; Reason: Worsening of condition. Follow up: Private Physician; When: 2 - 3 days; Reason: Recheck today's complaints, Continuance of care, Re-evaluation by your physician. Problem is new. Symptoms have improved. pm1
--- NOTE | 2020-05-24 12:30 | ER ---
Nurse's Notes [facility] Name: Will Zavala Age: 74 yrs Sex: Male : 1945 Arrival Date: 05/24/2020 Time: 11:35 Bed 19 Private MD: Diagnosis: Dental caries;Gingivitis and periodontal diseases Presentation: 05/24 11:59 Chief complaint: Patient states: Wilfred started with lower gum pain that has progressed sv now to lower jaw pain, dental pain (poor dentition), fever Tmax 101.7, headache, decreased appetite, and constipation. 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 Coronavirus screen: Client denies travel out of the [place] in the last 14 days. Ebola Screen: No symptoms or risks identified at this time. Initial Sepsis Screen: Does the patient meet any 2 criteria? No. Patient's initial sepsis screen is negative. Does the patient have a suspected source of infection? No. Patient's initial sepsis screen is negative. Risk Assessment: Do you want to hurt yourself or someone else? Patient reports no desire to harm self or others. Onset of symptoms was May 22, 2020. 11:59 Method Of Arrival: Ambulatory sv 11:59 Acuity: KILO 3 sv Triage Assessment: 12:57 General: Appears in no apparent distress. uncomfortable, Behavior is calm, cooperative, bw appropriate for age. Historical: - Allergies: 12:02 PENICILLINS; sv - PMHx: 12:02 Depression; Hypertension; Irregular heart rate; sv - PSHx: 12:02 Prostate; sv - Immunization history:: Client reports receiving the 2nd dose of the Covid vaccine, Client reports receiving the 1st dose of the Covid vaccine, Flu vaccine is up to date. - Social history:: Smoking status: Patient reports the use of cigarette tobacco products, denies chronic smoking, but will smoke occasionally. Screenin:17 Abuse screen: Denies threats or abuse. Nutritional screening: No deficits noted. bw Tuberculosis screening: No symptoms or risk factors identified. Fall Risk None identified. Assessment: 12:13 Pain: Complains of pain in dental pain. Neuro: No deficits noted. Cardiovascular: No bw deficits noted. Respiratory: No deficits noted. GI: No deficits noted. : No deficits noted. Vital Signs: 11:59 BP 140 / 77; Pulse 85; Resp 16; Temp 100.4(O); Weight 77.11 kg; Height 5 ft. 7 in. sv (170.18 cm); Pain 0/10; 12:56 BP 138 / 78; Pulse 84; Resp 18; Temp 99.9; Pulse Ox 100% on R/A; bw 11:59 Body Mass Index 26.63 (77.11 kg, 170.18 cm) ED Course: 11:35 Patient arrived in ED. ds1 11:51 Ruddy German NP is PHCP. pm1 11:51 Amor Arteaga MD is Attending Physician. pm1 12:01 Triage completed. sv 12:02 Arm band placed on Patient placed in an exam room, on a stretcher. sv 12:11 Lupis Sharp RN is Primary Nurse. bw 12:17 Patient has correct armband on for positive identification. Bed in low position. Call bw light in reach. Side rails up X 1. Pulse ox on. NIBP on. 12:17 No provider procedures requiring assistance completed. bw 12:56 Patient did not have IV access during this emergency room visit. bw Administered Medications: 12:24 Drug: Clindamycin 600 mg Route: IM; Site: right deltoid; bw 12:50 Follow up: Response: No adverse reaction bw 12:25 Drug: [place] (HYDROcodone-acetaminophen) (7.5 mg-325 mg) 1 tabs Route: PO; bw 12:50 Follow up: Response: No adverse reaction bw 12:25 Drug: Tylenol 650 mg Route: PO; bw 12:50 Follow up: Response: No adverse reaction bw Outcome: 12:29 Discharge ordered by . pm1 12:56 Discharged to home ambulatory. bw 12:56 Condition: stable 12:56 Discharge instructions given to patient. 12:57 Patient left the ED. bw Signatures: Katarina Jacobs RN RN Laura [place] ds1 Ruddy German NP PARTS ASSEMBLER pm1 Lupis Sharp RN RN bw
[2020-05-24] MEDS ORDERED: ACETAMINOPHEN 325 MG TABLET ONE (12:31)
[2020-05-24] MEDS ORDERED: HYDROCODONE/APAP 7.5/325 MG TAB ONE (12:32)
[2020-05-24] MEDS ORDERED: CLINDAMYCIN IV 150 MG/ML (4 mL) VIAL ONE (12:32)
[2020-05-24 13:16] VITALS: BP 138/78; TEMP 99.9; O2SAT 100
== END 2020-05-24 12:57 | disposition home or self-care (01) ==
LOC: ER 11:33
DX: K05.10 Chronic gingivitis, plaque induced (principal); K05.6 Periodontal disease, unspecified; I10 Essential (primary) hypertension; F17.210 Nicotine dependence, cigarettes, uncomplicated; Z88.0 Allergy status to penicillin
CPT/HCPCS: 96372; 99283; S0077

== ENCOUNTER 2022-08-10 06:38 | Inpatient (IN) | payer OTHER ==
--- OUTSIDE RECORDS SUMMARY | 2022-08-10 06:41 | XMS REPORT | Continuity of Care Document ---
:1945 Author Organization [facility] t Address [address] [place] [address] Care Team Providers Name Role Phone [facility] Primary Care Physician Unavailable GLORIA Attending Clinician Unavailable GLORIA Admitting Clinician Unavailable Problems This patient has no known problems. Allergies, Adverse Reactions, Alerts Allergy Allergy Status Severity Reaction(s) Onset Inactive Treating Comm ents Source Name Type Date Date Clinician Penicill Drug Active Rash [address] [facility] Social History Social Habit Start Date Stop Date Quantity Comments Source History of tobacco Smokes tobacco [facility] use daily [facility] Alcohol intake 2016-07-18 2016-07-18 [facility] (finding) Cigarettes smoked 2015-06-26 2015-06-[address] [facility] current (pack per 00:00:00 00:00:00 Medical Center day) - Reported Cigarette 2015-06-26 2015-06-[address] [facility] pack-years 00:00:00 00:00:00 [facility] Center Sex Assigned At [address] [facility] 00:00:00 00:00:00 [facility] Center Smoking Status Start Date Stop Date Source Smokes tobacco daily 2015-06-26 00:00:00 [facility] Medications Ordered Filled Start Stop Current Ordering Indication Dosage Frequency Signature Comments Components Source Medication Medication Date Date Medication? Clinician (SIG) Name Name temazepam Yes 7.5mg Take 7.[address] [facility] (RESTORIL) 6-05 mg by [facility] 7.5 MG 11:20: mouth Medical capsule 21 every Center night as needed for Sleep. metoprolol Yes 50mg QD Take [address] (TOPROL-XL) 07-14 by mouth [facility] 50 MG 24 hr 15:11: daily. Medi sulema tablet 34 Center amLODIPine Yes 2.5mg QD Take 2.[address] (NORVASC) 6 mg by [facility] 2.5 MG 15:11: mouth Medical tablet 34 daily. [place] escitalopra Yes 10mg QD Take [address] [facility] oxalate 07-14 by [facility] (LEXAPRO) 15:11: daily. Medica l 10 MG 34 Center tablet Procedures This patient has no known procedures. Encounters Start End Encounter Admission Attending Care Care Encounter Source Date/Time Date/Time Type Type Clinicians Facility Department ID 2021-08-24 2021-08-24 Outpatient DANTE LOREDO [id number] 11:50:00 11:50:00 [id number] [facility] Program Results This patient has no known results.
[2022-08-10] MEDS ORDERED: CEFTRIAXONE 2000 MG/VIAL ONE (07:06)
[2022-08-10] MEDS ORDERED: ACETAMINOPHEN 500 MG TAB ONE (07:06)
[2022-08-10] MEDS ORDERED: NA CHLORIDE 0.9% 2,000 ML ONE (07:07)
[2022-08-10] MEDS ORDERED: NA CHLORIDE 0.9% 50 ML ONE (07:07)
[2022-08-10 07:14] LABS: Absolute Lymphocytes (CBC) 0.3 K/uL (0.7-4.9); Hematocrit 41.6 % (39.6-49.0); Lymphocytes % 2.1 % (15.3-44.8); MCV 94.8 fL (80-100); MPV 6.4 fL (7.6-11.3); RBC Red Blood Cell Count 4.39 M/uL (4.33-5.43)
[2022-08-10 07:18] LABS: Protime INR 1.24
[2022-08-10 07:34] LABS: Albumin 2.9 g/dL (3.4-5.0); Bilirubin Direct 0.3 mg/dL (0-0.2); Bilirubin Indirect, Calculated 0.7 mg/dL (0.2-0.8); Magnesium 1.9 mg/dL (1.6-2.4); Potassium 3.9 mEq/L (3.5-5.1); Protein, Total 7.2 g/dL (6.4-8.2); Troponin High Sensitivity 30.9 pg/mL (<58.9)
--- NOTE | 2022-08-10 07:37 | RAD REPORT ---
EXAM DESCRIPTION: CT - Stone Protocol - 08/10/2022 7:19 am CLINICAL HISTORY: Abdominal pain. COMPARISON: None. TECHNIQUE: Computed axial tomography of the abdomen pelvis was obtained without oral or IV contrast. Lack of IV and oral contrast limits evaluation of solid organs, appendix, bowel, and vessels. Barnes l reformatted images were obtained and reviewed. All CT scans are performed using dose optimization technique as appropriate and may include automated exposure control or mA/KV adjustment according to patient size. FINDINGS: A punctate nonobstructing left renal calculus An ureteral calculus is not noted. A bladder calculus is not present. No hydronephrosis. 3.7 centimeter right renal low-density mass contains peripheral calcification. 0.4 centimeter low-den sity left renal mass also contains small peripheral calcifications. A vague small low-density area of liver nonspecific without IV contrast Small splenic cyst. Pancreas and adrenals grossly normal There is no evidence of diverticulitis. The appendix appears normal Atherosclerosis. Small umbilical hernia. Small to moderate periumbilical hernia containing fat. Small hiatal hernia IMPRESSION: Punctate nonobstructing left renal calculus Bilateral low-density cystic renal masses containing peripheral calcifications. Most likely these are benign. Cystic neoplasm can have a similar appearance. It is recommended that the patient have a non emergent CT abdomen with IV contrast for further evaluation
[2022-08-10 08:11] LABS: Blood Morphology Comment NOT SEEN (NOT SEEN); Platelet Estimate ADEQ; White Blood Cell Scan OK (OK)
--- NOTE | 2022-08-10 08:45 | RAD REPORT ---
EXAM DESCRIPTION: Denise Single View08/10/2022 8:25 am CLINICAL HISTORY: Hypertension, abdominal pain COMPARISON: 2019 FINDINGS: Lungs appear clear of acute infiltrate. Heart is normal size IMPRESSION: No acute abnormalities displayed
--- NOTE | 2022-08-10 10:57 | ER ---
Nurse's Notes [facility] Name: Will Zavala Age: 76 yrs Sex: Male : 1945 Arrival Date: 08/10/2022 Time: 06:38 Bed 7 Private MD: Diagnosis: Sepsis, unspecified organism Presentation: 08/10 06:39 Chief complaint: EMS states: PT complains of UTI for 3 weeks, he went to the [place] [facility]1 yesterday and they took a culture but sent him home with no antibiotic. He's complaining of a burning sensation with urination. Back pain that hurts in the middle and radiates out. He vomited 2 times prior to our arrival. He was tachycardic and diaphoretic. Coronavirus screen: Vaccine status: Patient reports receiving the 2nd dose of the covid vaccine. Plus boosters; unaware of type cutter Client denies travel out of the [place] in the last 14 days. At this time, the client does not indicate any symptoms associated with coronavirus-19. Ebola Screen: Patient negative for fever greater than or equal to 101.5 degrees Fahrenheit, and additional compatible Ebola Virus Disease symptoms Patient denies exposure to infectious person. Patient denies travel to an Ebola-affected area in the 21 days before illness onset. No symptoms or risks identified at this time. Initial Sepsis Screen: Does the patient meet any 2 criteria? Temp <36.0*C (96.8*F)) or > 38.3*C (100.9*F). HR > 90 bpm. Yes Does the patient have a suspected source of infection? Yes: Dysuria/Frequency/Urgency/UTI If YES to both, name of provider notified: Tim Guerra MD Risk Assessment: Do you want to hurt yourself or someone else? Patient reports no desire to harm self or others. Onset of symptoms is unknown. 06:39 Method Of Arrival: EMS[facility] 06:39 Acuity: KILO 3 vc1 06:39 Care prior to arrival: IV initiated. 20 GA, in the right antecubital area. vc1 Triage Assessment: 06:44 General: Appears in no apparent distress. uncomfortable, ill, Behavior is calm, vc1 cooperative, appropriate for age. Pain: Complains of pain in lumbar area Pain radiates to lumbar area, left low back and right low back Pain currently is 5 out of 10 on a pain scale. at worst was 10 out of 10 on a pain scale. EENT: No deficits noted. No signs and/or symptoms were reported regarding the EENT system. Neuro: Level of Consciousness is awake, alert, obeys commands, Oriented to person, place, time, situation, Appropriate for age. Cardiovascular: No deficits noted. Respiratory: Airway is patent Respiratory effort is even, unlabored, Respiratory pattern is regular, symmetrical. GI: No deficits noted. No signs and/or symptoms were reported involving the gastrointestinal system. : No deficits noted. No signs and/or symptoms were reported regarding the genitourinary system. Derm: Skin temperature is hot. Musculoskeletal: No deficits noted. No signs and/or symptoms reported regarding the musculoskeletal system. Historical: - Allergies: 06:43 PENICILLINS; vc1 - Home Meds: 06:43 amlodipine oral [Active]; metoprolol tartrate 50 mg Oral tab [Active]; vc1 - PMHx: 06:43 Depression; Hypertension; Irregular heart rate; vc1 - PSHx: 06:43 None; vc1 - Immunization history:: Client reports receiving the 2nd dose of the Covid vaccine. - Social history:: Smoking status: Patient reports the use of cigarette tobacco products, few a day. Screenin:45 [facility] ED Fall Risk Assessment (Adult) History of falling in the last 3 months, vc1 including since admission No falls in past 3 months (0 pts) Confusion or Disorientation No (0 pts) Intoxicated or Sedated No (0 pts) Impaired Gait Yes (1 pt) Mobility Assist Device Used No (0 pt) Altered Elimination Yes (1 pt) Score/Fall Risk Level 0 - 2 = Low Risk Oriented to surroundings, Maintained a safe environment, Educated pt \T\ family on fall prevention, incl call for assistance when getting out of bed. Abuse screen: Denies threats or abuse. Nutritional screening: No deficits noted. Tuberculosis screening: No symptoms or risk factors identified. Assessment: 06:47 Reassessment: See triage assessment. vc1 07:00 Reassessment: RECD REPORT FROM OZZIE ALMANZA. bp 09:00 Reassessment: Patient appears in no apparent distress at this time. Patient is alert, bp oriented x 3, equal unlabored respirations, skin warm/dry/pink. 10:11 Reassessment: urine sent to lab, Alize from lab called and stated it was not enough ko1 urine to run, patient is only able to void in very small amounts. Informed patient that we will need another sample when possible. Vital Signs: 06:39 BP 131 / 55; Pulse 92; Resp 26; Temp 101.2; Pulse Ox 95% on R/A; Weight 78.02 kg; vc1 Height 5 ft. 7 in. ; Pain 5/10; 08:00 BP 124 / 66; Pulse 82; Resp 22; Pulse Ox 97% ; bp 09:32 BP 126 / 61; Pulse 68; Resp 15; Pulse Ox 95% ; bp 10:19 BP 114 / 57; Pulse 74; Resp 18; Pulse Ox 98% ; ko1 12:10 BP 131 / 63; Pulse 67; Resp 18; Temp 97.9(O); Pulse Ox 98% on R/A; mb9 06:39 Body Mass Index 26.94 (78.02 kg, 170.18 cm) vc1 06:39 Pain Scale: Adult vc1 ED Course: 06:39 Patient arrived in ED. vc1 06:40 Tim Guerra MD is Attending Physician. [facility] 06:43 Triage completed. vc1 06:45 Patient has correct armband on for positive identification. Bed in low position. Call vc1 light in reach. 06:46 Arm band placed on right wrist. vc1 06:46 Client placed on continuous cardiac and pulse oximetry monitoring. NIBP monitoring vc1 applied. 06:47 Ozzie Swan, [facility] is Primary Nurse. vc1 07:03 Attending Physician role handed off by Tim Guerra MD rt 07:03 Nickolas Whitfield MD is Attending Physician. rt 07:08 Maintain EMS IV. Dressing intact. Good blood return noted. Site clean \T\ dry. Gauge \T\ vc 1 site: 20 right AC. 07:09 Lactate w/ 2H reflex if indic. Sent. vc1 07:09 Blood Culture Adult (2) Sent. vc1 07:09 Basic Metabolic Panel Sent. vc1 07:09 CBC with Diff Sent. vc1 07:09 LFT's Sent. vc1 07:09 Magnesium Sent. vc1 07:09 NT PRO-BNP Sent. vc1 07:09 PT-INR Sent. vc1 07:09 Troponin HS Sent. vc1 07:10 Inserted saline lock: 20 gauge in left forearm, using aseptic technique. Blood oe collected. 07:18 Primary Nurse role handed off by Ozzie Swan RN ko1 07:18 Jennifer Fam, RN is Primary Nurse. ko1 07:21 CT Stone Protocol In Process Unspecified. EDMS 08:27 XRAY Chest (1 view) In Process Unspecified. EDMS 10:56 Dale Arteaga MD is Hospitalizing Provider. rt 12:12 No provider procedures requiring assistance completed. Patient admitted, IV remains in bp place. Administered Medications: 07:03 Drug: Acetaminophen PO 1000 mg Route: PO; ha1 07:10 Drug: NS 0.9% IV 1000 ml Route: IV; Rate: 1 bolus; Site: right antecubital; ha1 07:10 Drug: NS 0.9% IV 1000 ml Route: IV; Rate: 1 bolus; Site: right antecubital; ha1 07:11 Drug: Rocephin IV 2 grams Route: IV; Rate: per protocol; Site: left forearm; ha1 Medication: 06:45 VIS not applicable for this client. vc1 Outcome: 10:57 Decision to Hospitalize by Provider. rt 12:13 Condition: stable bp 12:13 Instructed on the need for admit. 12:41 Admitted to Med/surg accompanied by tech, via wheelchair, room 409, with chart, Report ko1 called to [facility] Euceda 12:48 Patient left the ED. ko1 Signatures: Dispatcher [employer] EDAR Tim Guerra MD MD cha Espinosa, Orlando oe Peltier, Brian, RN RN bp Ozzie Swan RN RN vc1 Meghan Cox RN RN ha1 Jennifer Fam, [facility] RN Naomie Yung RN RN Nickolas Thakur MD MD rt Corrections: (The following items were deleted from the chart) 06:46 06:45 Client placed on continuous cardiac and pulse oximetry monitoring. NIBP vc1 monitoring applied. vc1 07:08 06:39 BP 131 / 55; Pulse 92bpm; Resp 18bpm; Pulse Ox 95% RA; Temp 101.2F; 78.02 kg; vc1 Height 5 ft. 7 in.; BMI: 26.9; Pain 5/10, Adult; vc1
--- NOTE | 2022-08-10 10:57 | EDPHYS ---
Physician Documentation [facility] Name: Will Zavala Age: 76 yrs Sex: Male : 1945 Arrival Date: 08/10/2022 Time: 06:38 Bed 7 Private MD: ED Physician Nickolas Whitfield HPI: 08/10 06:56 This 76 yrs old Male presents to ER via EMS with complaints of dysuria x 3 ness weeks. 06:56 The patient presents with urinary symptoms, dysuria, urinary frequency, hesitancy to ness initiate urine stream. Onset: The symptoms/episode began/occurred 3 week(s) ago. Modifying factors: The symptoms are alleviated by nothing, the symptoms are aggravated by urinating. Associated signs and symptoms: Pertinent positives: abdominal pain. Severity of symptoms: At their worst the symptoms were mild, moderate, in the emergency department the symptoms have resolved. The patient has not experienced similar symptoms in the past. Historical: - Allergies: 06:43 PENICILLINS; vc1 - Home Meds: 06:43 amlodipine oral [Active]; metoprolol tartrate 50 mg Oral tab [Active]; vc1 - PMHx: 06:43 Depression; Hypertension; Irregular heart rate; vc1 - PSHx: 06:43 None; vc1 - Immunization history:: Client reports receiving the 2nd dose of the Covid vaccine. - Social history:: Smoking status: Patient reports the use of cigarette tobacco products, few a day. ROS: 06:57 Eyes: Negative for injury, pain, redness, and discharge, ENT: Negative for injury, ness pain, and discharge, Neck: Negative for injury, pain, and swelling, Cardiovascular: Negative for chest pain, palpitations, and edema, Respiratory: Negative for shortness of breath, cough, wheezing, and pleuritic chest pain, Abdomen/GI: Negative for abdominal pain, nausea, vomiting, diarrhea, and constipation, MS/Extremity: Negative for injury and deformity, Skin: Negative for injury, rash, and discoloration, Neuro: Negative for headache, weakness, numbness, tingling, and seizure. 06:57 Constitutional: Positive for fever. 06:57 Back: Positive for pain at rest, flank pain, on the right. Exam: 06:57 Head/Face: Normocephalic, atraumatic. Eyes: Pupils equal round and reactive to light, ness extra-ocular motions intact. Lids and lashes normal. Conjunctiva and sclera are non-icteric and not injected. Cornea within normal limits. Periorbital areas with no swelling, redness, or edema. ENT: Nares patent. No nasal discharge, no septal abnormalities noted. Tympanic membranes are normal and external auditory canals are clear. Oropharynx with no redness, swelling, or masses, exudates, or evidence of obstruction, uvula midline. Mucous membranes moist. Neck: Trachea midline, no thyromegaly or masses palpated, and no cervical lymphadenopathy. Supple, full range of motion without nuchal rigidity, or vertebral point tenderness. No Meningismus. Chest/axilla: Normal chest wall appearance and motion. Nontender with no deformity. No lesions are appreciated. Cardiovascular: Regular rate and rhythm with a normal S1 and S2. No gallops, murmurs, or rubs. Normal PMI, no JVD. No pulse deficits. Respiratory: Lungs have equal breath sounds bilaterally, clear to auscultation and percussion. No rales, rhonchi or wheezes noted. No increased work of breathing, no retractions or nasal flaring. Back: No spinal tenderness. No costovertebral tenderness. Full range of motion. Male : Normal genitalia with no discharge or lesions. Skin: Warm, dry with normal turgor. Normal color with no rashes, no lesions, and no evidence of cellulitis. 06:57 Constitutional: The patient appears well developed, febrile. 06:57 Back: pain, that is mild, of the left mid back and right mid back. 07:01 ECG was reviewed by the Attending Physician. [facility] Vital Signs: 06:39 BP 131 / 55; Pulse 92; Resp 26; Temp 101.2; Pulse Ox 95% on R/A; Weight 78.02 kg; vc1 Height 5 ft. 7 in. ; Pain 5/10; 08:00 BP 124 / 66; Pulse 82; Resp 22; Pulse Ox 97% ; bp 09:32 BP 126 / 61; Pulse 68; Resp 15; Pulse Ox 95% ; bp 10:19 BP 114 / 57; Pulse 74; Resp 18; Pulse Ox 98% ; ko1 12:10 BP 131 / 63; Pulse 67; Resp 18; Temp 97.9(O); Pulse Ox 98% on R/A; mb9 06:39 Body Mass Index 26.94 (78.02 kg, 170.18 cm) vc1 06:39 Pain Scale: Adult vc1 MDM: 06:40 Patient medically screened. [facility] 06:59 Differential diagnosis: nephrolithiasis, pyelonephritis, UTI, nonspecific abdominal ness pain, UTI, urinary retention, prostatitis, urethritis. Data reviewed: vital signs, nurses notes, EMS record, lab test result(s), EKG, radiologic studies, CT scan, plain films. Consideration of Admission/Observation Escalation of care including admission/observation considered. I considered the following discharge prescriptions or medication management in the emergency department Medications were administered in the Emergency Department. See MAR. Test considered but Not performed: Ultrasound no abd usg. Care significantly affected by the following chronic conditions: Hypertension, depression, irr heart rate. Counseling: I had a detailed discussion with the patient and/or guardian regarding: the historical points, exam findings, and any diagnostic results supporting the discharge/admit diagnosis, lab results, radiology results, the need for further work-up and treatment in the hospital. 10:57 ED course: . rt 08/10 06:43 Order name: Basic Metabolic Panel; Complete Time: 08:42 [facility] 08/10 06:43 Order name: CBC with Diff; Complete Time: 08:42 [facility] 08/10 06:43 Order name: LFT's; Complete Time: 08:42 [facility] 08/10 06:43 Order name: Magnesium; Complete Time: 08:42 [facility] 08/10 06:43 Order name: NT PRO-BNP; Complete Time: 08:42 [facility] 08/10 06:43 Order name: PT-INR; Complete Time: 08:42 [facility] 08/10 06:43 Order name: Troponin HS; Complete Time: 08:42 [facility] 08/10 06:43 Order name: Blood Culture Adult (2) [facility] 08/10 06:43 Order name: Lactate w/ 2H reflex if indic.; Complete Time: 08:42 [facility] 08/10 06:43 Order name: Urinalysis w/ reflexes; Complete Time: 12:55 [facility] 08/10 07:18 Order name: CBC Smear Scan; Complete Time: 08:42 EDMS 08/10 12:09 Order name: Magnesium EDMS 08/10 12:09 Order name: Phosphorus EDMS 08/10 12:09 Order name: T4 Free EDMS 08/10 12:09 Order name: Thyroid Stimulating Hormone [facility] 08/10 12:09 Order name: Urinalysis w/ reflexes [facility] 08/10 12:09 Order name: Basic Metabolic Panel [facility] 08/10 12:09 Order name: Basic Metabolic Panel [facility] 08/10 12:09 Order name: CBC with Automated Diff [facility] 08/10 12:09 Order name: CBC with Automated Diff [facility] 08/10 06:43 Order name: XRAY Chest (1 view); Complete Time: 08:58 [facility] 08/10 06:43 Order name: CT Stone Protocol; Complete Time: 08:42 [facility] 08/10 06:43 Order name: EKG; Complete Time: 06:44 [facility] 08/10 12:09 Order name: Heart Healthy [facility] 08/10 06:43 Order name: Cardiac monitoring; Complete Time: 07:09 [facility] 08/10 06:43 Order name: EKG - Nurse/Tech; Complete Time: 07:09 [facility] 08/10 06:43 Order name: IV Saline Lock; Complete Time: 07:09 [facility] 08/10 06:43 Order name: Labs collected and sent; Complete Time: 07:09 [facility] 08/10 06:43 Order name: O2 Per Protocol; Complete Time: 07:09 [facility] 08/10 06:43 Order name: O2 Sat Monitoring; Complete Time: 07:09 [facility] EC:01 Rate is 90 beats/min. Rhythm is regular. QRS [place] is Normal. MS interval is prolonged ness at 226 msec. QRS interval is normal. QT interval is normal. No Q waves. T waves are Normal. No ST changes noted. Clinical impression: NSR w/ Non-specific ST/T Changes, 1st degree heart block, and No evidence of ischemia. Interpreted by me. Administered Medications: 07:03 Drug: Acetaminophen PO 1000 mg Route: PO; ha1 07:10 Drug: NS 0.9% IV 1000 ml Route: IV; Rate: 1 bolus; Site: right antecubital; ha1 07:10 Drug: NS 0.9% IV 1000 ml Route: IV; Rate: 1 bolus; Site: right antecubital; ha1 07:11 Drug: Rocephin IV 2 grams Route: IV; Rate: per protocol; Site: left forearm; ha1 Disposition Summary: 08/10/22 10:57 Hospitalization Ordered Hospitalization Status: Inpatient Admission rt Provider: Dale Arteaga rt [facility] rt Condition: Stable rt Problem: new rt Symptoms: have improved rt Bed/Room Type: Standard rt Room Assignment: 409(08/10/22 12:11) dw Diagnosis - Sepsis, unspecified organism rt Forms: - Medication Reconciliation Form rt - SBAR form rt Signatures: Dispatcher [employer] Chani Duran RN RN dw Tim Guerra MD MD cha Calcote, Vanessa, RN RN vc1 Meghan Cox RN RN ha1 Nickolas Whitfield MD MD rt Corrections: (The following items were deleted from the chart) 12:11 10:57 rt dw
[2022-08-10] MEDS ORDERED: LABETALOL 20 MG/4ML SYRINGE IV PRN (12:05)
[2022-08-10] MEDS ORDERED: TRAMADOL HCL 50 MG TAB PO PRN (12:05)
[2022-08-10] MEDS ORDERED: ONDANSETRON 4 MG/2 ML VIAL IV PRN (12:06)
--- NOTE | 2022-08-10 12:08 | P.HP ---
Certification for Inpatient Patient admitted to: Inpatient With expected LOS: >2 Midnights Patient will require the following post-hospital care: None Practitioner: I am a practitioner with admitting privileges, knowledge of patient current condition, hospital course, and medical plan of care. Services: Services provided to patient in accordance with Admission requirements found in Title 42 Section 412.3 of the Code of Federal Regulations Patient History Date of Service: 08/10/22 Reason for admission: Urinary frequency and dysuria History of Present Illness: Patient is a 76-year-old male with a past medical history significant for depression, hypertension, arrhythmia, nicotine dependence who presents with complaint of urinary frequency and dysuria that has been ongoing for the past 3 weeks. Patient reported that he had a cystoscopy 3 weeks ago and 2 days later patient started having dysuria, urinary frequency and urinary hesitancy. Patient reported associated signs and symptoms of fatigue, weakness, dizziness, fever, chills, nausea, diaphoresis, poor appetite, vomiting, intermittent confusion and suprapubic pain. Patient denies any other signs and symptoms. Symptoms are aggravated or relieved by nothing. Patient decided to present to the hospital for medical evaluation. Allergies Penicillins Allergy (Verified 06/19/19 15:57) Hives Home Medications: Amlodipine [Norvasc*] 5 mg PO DAILY 06/19/19 Escitalopram Oxalate [Lexapro] 10 mg PO DAILY 06/19/19 Metoprolol Tartrate [Lopressor*] 50 mg PO DAILY 06/19/19 Trazodone [Desyrel*] 50 mg PO BEDTIME 06/19/19 - Past Medical/Surgical History Diabetic: No -: Depression -: Hypertension -: Arrhythmia -: Left shoulder surgery - Family History Family History: Reviewed- Non-Contributory - Family History Father -: Stroke Mother -: Heart disease - Social History Smoking Status: Current every day smoker Counseled patient to stop smoking for: less than 10 minutes Smoking therapy provided: Yes Patient receptive to therapy: Yes Alcohol use: No CD- Drugs: No Caffeine use: Yes Place of Residence: Home Review of Systems General: Fever, Chills, Sweats, Weakness, Other (Fatigue, poor appetite.) Eyes: Unremarkable ENT: Unremarkable Respiratory: Unremarkable Cardiovascular: Unremarkable Gastrointestinal: Nausea, Vomiting, Abdominal Pain Genitourinary: Dysuria, Frequency, Other (Urinary hesitancy.) Musculoskeletal: Unremarkable Integumentary: Unremarkable Neurological: Weakness, Confusion, Other (Dizziness) Lymphatics: Unremarkable Physical Examination - Physical Exam General: Alert, In no apparent distress, Oriented x3, Cooperative HEENT: Atraumatic, PERRLA, Mucous membr. moist/pink, EOMI, Sclerae nonicteric Neck: Supple, 2+ carotid pulse no bruit, No LAD, Without JVD or thyroid abnormality Respiratory: Clear to auscultation bilaterally, Normal air movement Cardiovascular: Normal S1 S2, Irregular heart rate/rhythm Capillary refill: <2 Seconds Gastrointestinal: Normal bowel sounds, Soft and benign, No tenderness Musculoskeletal: No clubbing, No swelling, No tenderness Integumentary: No rashes, No significant lesion Neurological: Normal gait, Normal speech, Normal strength at 5/5 x4 extr, Normal tone, Normal affect Lymphatics: No axilla or inguinal lymphadenopathy - Studies Laboratory Data (last 24 hrs) 08/10/22 06:59: PT 13.6 H, INR 1.24 08/10/22 06:59: WBC 14.10 H, Hgb 14.0, Hct 41.6, Plt Count 274 08/10/22 06:59: Sodium 133 L, Potassium 3.9, BUN 16, Creatinine 1.16, Glucose 133 H, Magnesium 1.9, Total Bilirubin 1.0, AST 16, ALT 20, Alkaline Phosphatase 92 Assessment and Plan - Plan --Sepsis POA\leukocytosis. Likely secondary to UTI. Blood cultures pending. Continue antibiotics and IV hydration. --UTI POA. Continue antibiotics. Urine cultures pending. --Arrhythmia. Patient has a history of arrhythmia. Reports that he has not taken his metoprolol today. Echocardiogram pending to assess cardiac structures and function. Simulation Tech consulted. Continue metoprolol. Telemetry to monitor for any malignant arrhythmia. We will await further recommendation from bomb loader. --Nausea and vomiting. Antiemetics on board. Continue IV hydration. --Nicotine dependence. Patient counseled on tobacco cessation. Refuses nicotine patch. --Depression. Continue home medication. --Acute metabolic encephalopathy. Likely secondary to UTI. Encephalopathy currently resolved at time of assessment.. Continue supportive care. --DVT prophylaxis with Lovenox subQ. Discharge Plan: Home Plan to discharge in: Greater than 2 days - Advance Directives Does patient have a Living Will: No Does patient have a Durable POA for Healthcare: No - Code Status/Comfort Care Code Status Assessed: Yes Physician Review: Patient Assessed, Agree with Above Assessment and Plan Critical Care: No
[2022-08-10 12:25] LABS: Transitional Epithelial <5 /HPF (None Seen); Urine Bacteria <20 /HPF (<20); Urine Bilirubin NEGATIVE (Negative); Urine Blood Trace (Negative); Urine Clarity Extremely Turbid (Clear); Urine Color Yellow (Yellow); Urine Glucose NEGATIVE (Negative); Urine Mucus Slight /HPF (None Seen); Urine Protein 1+ (Negative); Urine RBC <5 /HPF (None Seen); Urine Urobilinogen Normal (Normal); Urine pH 6.5 (5.0-7.0)
[2022-08-10] MEDS ORDERED: ENOXAPARIN 40 MG/0.4 ML SQ SCH (13:00)
[2022-08-10] MEDS ORDERED: NA CHLORIDE 0.9% 1,000 ML IV ONE (13:30)
[2022-08-10 13:38] VITALS: BMI 26.9
[2022-08-10 13:46] LABS: Magnesium 1.9 mg/dL (1.6-2.4); Phosphorus 2.9 mg/dL (2.5-4.9); Thyroid Stimulating Hormone 0.554 uIU/mL (0.358-3.740)
[2022-08-10] MEDS: ACETAMINOPHEN 325 MG TABLET PO PRN (13:48)
[2022-08-10] MEDS: Levofloxacin 750mg IV 750 MG/150 ML BAG IV SCH (13:48)
[2022-08-10] MEDS ORDERED: METOPROLOL TAR 50 MG TAB PO SCH (14:00)
[2022-08-10] MEDS ORDERED: POTASSIUM CL SA 10 MEQ TAB PO ONE (15:00)
[2022-08-10] MEDS: NA CHLORIDE 0.9% 1,000 ML IV SCH (15:03)
--- NOTE | 2022-08-10 18:08 | EKG ---
Test Date: 2022-08-10 Test Time: 06:43:29 Wrist Liner: ANITA MEASUREMENT RESULTS: Intervals: Rate: 90 WA: 226 QRSD: 90 QT: 372 QTc: 455 Council: P: 47 WA: 226 QRS: 100 T: 64 INTERPRETIVE STATEMENTS: Sinus rhythm with 1st degree AV block Rightward axis Borderline ECG No previous ECG available for comparison Electronically Signed On 08-10-22 18:07:09 CDT by Bassam Grande
--- NOTE | 2022-08-10 19:40 | CON ---
Date of Consultation: 08/10/2022 Reason For Consultation: Atrial flutter with rapid ventricular response. History Of Present Illness: A 76-year-old male with history of hypertension, atrial flutter/fibrilla tion, depression, presented to the emergency room with urinary frequency and dysuria for 3 weeks. De nies having any chest pain, shortness of breath, or palpitations. Past Medical History: As outlined above in HPI. Medications: Refer to reconciliation sheet for detailed list. Allergies: PENICILLIN. Family History: No premature coronary artery disease or cancer. Social History: He is an active smoker. Does not drink or use any drugs. Review of Systems: All systems reviewed and they were negative except what mentioned in HPI. Physical Examination: Vital Signs: Reviewed. Head and Neck: Pupils are equal, reactive to light. Intact eye movements. No JVD. No cervical lym phadenopathy. Neck is supple. Thyroid is not enlarged. Lungs: Clear to auscultation bilaterally. No rhonchi, wheezing, or crackles. No accessory muscle u se. Heart: Irregular. No extra sounds. Abdomen: Soft, nontender. Bowel sounds positive. No organomegaly. No masses or hernia. No rigidi ty or rebound. Extremities: No edema, clubbing, or cyanosis. Intact pulses. Skin: No rash. Neurologic: Alert, awake, oriented x3. No acute focal deficits appreciated. Investigations: BUN 16, creatinine 1.1, and NT-proBNP is 729. Troponins were negative. Hemoglobin is 14. Assessment And Recommendations: 1.Atrial fibrillation/flutter with rapid ventricular response. His heart rate is better now, it is in the 70s. He was on metoprolol at home to continue that, can titrate up the dose based on his hear t rate. If he continues to run fast, then I will recommend to do an IV amiodarone load overnight wit h 150 mg over 10 minutes and then 1 mg/minute for 6 hours and then 0.25 mg for 16 hours and then afte r that to perform a MIGUEL A-guided cardioversion. Recommend anticoagulation with Eliquis. 2.Elevated NT-proBNP. Please obtain echocardiogram to evaluate heart function. Thank you for the consult. /MODL Voice ID: [id number] Report ID: [id number]
[2022-08-10] MEDS: APIXABAN 5 MG TABLET PO SCH (22:07)
[2022-08-10] MEDS: TRAZODONE 50 MG TABLET PO SCH (22:08)
[2022-08-11] MEDS: NA CHLORIDE 0.9% 1,000 ML IV SCH (06:47)
[2022-08-11 07:04] LABS: Absolute Lymphocytes (CBC) 1.2 K/uL (0.7-4.9); Hematocrit 38.1 % (39.6-49.0); Lymphocytes % 9.8 % (15.3-44.8); MCV 96.5 fL (80-100); MPV 6.8 fL (7.6-11.3); RBC Red Blood Cell Count 3.94 M/uL (4.33-5.43)
--- NOTE | 2022-08-11 07:08 | P.PN ---
Date of Service: 08/11/22 Subjective: feeling better today, frequency of urination is improving unsteady/weak at the knees, worsening since ~3 weeks ago 101.2 fever yesterday; afebrile today afib/flutter when arrived to floor from ED yesterday, restarted home metoprolol, improved in and out of afib/aflutter, HR improving ROS: 10 point ROS as noted above, otherwise negative Physical Exam: GEN: Alert, oriented, NAD HEENT: Normal conjunctiva, sclera anicteric CV: Irregularly Irregular rate and rhythm, no edema Pulm: Nonlabored respirations on room air ABD: Soft, nontender, nondistended Neuro: Normal speech, normal affect vitals reviewed Problem List: Sepsis secondary to UTI (POA) Acute metabolic encephalopathy - resolved Afib, chronic Nausea and vomiting Nicotine dependence Depression Sepsis POA secondary to UTI UTI POA Acute metabolic encephalopathy - resolved was previously at the [facility] in [place] ~2-3 days prior to coming here request labs, urine culture results UA(08/10): 250 leuk est., >50 WBC, <20 bacteria Blood cultures(08/10): NGTD Urine cultures(08/10): pending Continue levaquin(08/10-) IVF PRN pain meds Chronic a-fib h/o "arrhythmia" in ED, patient didn't report any prior history. noted to be in aflutter/afib on arrival to floor. Now states he believes he has had afib/flutter on metoprolol at home does not recall any prior conversations regarding anticoagulation; not on anticoagulation at home Echo pending Cardiology consulted Continue home metoprolol start eliquis monitor on telemetry Nausea and vomiting improving continue Antiemetics IVF Nicotine dependence Patient counseled on tobacco cessation. Refuses nicotine patch. Depression Continue home medication VTE: Eliquis Code: Full Dispo: Home , ~1-2 days
[2022-08-11 07:23] LABS: Potassium 4.2 mEq/L (3.5-5.1)
[2022-08-11] MEDS: ASPIRIN 81 MG CHEWABLE TABLET PO SCH (08:09)
[2022-08-11] MEDS: METOPROLOL XL 50 MG TAB PO SCH (08:11)
[2022-08-11] MEDS: ESCITALOPRAM 20 MG TAB PO SCH (08:11)
[2022-08-11] MEDS: AMLODIPINE 5 MG TAB PO SCH (08:11)
[2022-08-11] MEDS: APIXABAN 5 MG TABLET PO SCH ×2 (08:11→21:09)
[2022-08-11] MEDS ORDERED: METOPROLOL TAR 50 MG TAB PO SCH (09:00)
[2022-08-11] MEDS: Levofloxacin 750mg IV 750 MG/150 ML BAG IV SCH (13:07)
--- NOTE | 2022-08-11 19:36 | PN ---
Date of Progress Note: 08/11/2022 Subjective: Seen by bedside. No cardiac complaints. No palpitations. Heart rate has been in the 7 0s to 70s, in atrial flutter. Review of Systems: No chest pain, shortness of breath, orthopnea, cough. No nausea, vomiting, diarrhea. All other syst ems reviewed and they were negative. Physical Examination: Vital Signs: Reviewed. Head and Neck: Pupils are equal, reactive to light. Intact eye movements. No JVD. No cervical lym phadenopathy. Neck is supple. Thyroid is not enlarged. Lungs: Clear to auscultation bilaterally. No rhonchi, wheezing, or crackles. No accessory muscle u se. Heart: Regular on exam. No extra sounds. Abdomen: Soft, nontender. Bowel sounds positive. No organomegaly. No masses or hernia. No rigidi ty or rebound. Extremities: No clubbing or cyanosis. Intact pulses. Skin: No rash. Neurologic: Alert, awake, oriented x3. No acute focal deficits appreciated. Investigations: Labs were reviewed. Troponins are negative. BUN 16, creatinine 0.83. Assessment And Recommendations: 1.Atrial fibrillation/flutter. Rate is controlled. In fact, he is in flutter now. It is controlle d. Continue Eliquis and metoprolol. 2.Elevated NT-proBNP due to diastolic dysfunction. Blood pressure is controlled. Continue current therapy. Cardiology will sign off. The patient will follow up with [facility] cell repairer as an outpatient. SR/MODL Voice ID: [id number] Report ID: [id number]
[2022-08-11] MEDS: ACETAMINOPHEN 325 MG TABLET PO PRN ×2 (19:47→21:13)
[2022-08-11] MEDS: TRAZODONE 50 MG TABLET PO SCH (21:09)
[2022-08-12 04:03] LABS: Absolute Lymphocytes (CBC) 0.9 K/uL (0.7-4.9); Hematocrit 38.1 % (39.6-49.0); Lymphocytes % 4.8 % (15.3-44.8); MCV 96.8 fL (80-100); RBC Red Blood Cell Count 3.93 M/uL (4.33-5.43)
[2022-08-12 04:18] LABS: Magnesium 1.9 mg/dL (1.6-2.4); Potassium 4.3 mEq/L (3.5-5.1)
--- NOTE | 2022-08-12 07:35 | ECHO ---
HEIGHT: 5 ft 7 in WEIGHT: 172 lb 0.074 oz DATE OF STUDY: 08/11/[address]: Jc Avila 2-DIMENSIONAL: YES M.MODE: YES DOPPLER: YES COLOR FLOW: YES TDS: PORTABLE: YES DEFINITY: BUBBLE STUDY: DIAGNOSIS: ARRHYTHMIA CARDIAC HISTORY: CATHERIZATION: NO SURGERY: NO PROSTHETIC VALVE: NO PACEMAKER: NO MEASUREMENTS (cm) DIASTOLIC (NORMALS) SYSTOLIC (NORMALS) IVSd 1.1 (0.6-1.2) LA Diam 3.1 (1.9-4.0) LVEF 67% LVIDd 4.3 (3.5-5.7) LVIDs 2.7 (2.0-3.5) %FS 37% LVPWd 1.1 (0.6-1.2) Ao Diam 3.0 (2.0-3.7) 2 DIMENSIONAL ASSESSMENT: RIGHT ATRIUM: NORMAL LEFT ATRIUM: NORMAL RIGHT VENTRICLE: NORMAL LEFT VENTRICLE: NORMAL TRICUSPID VALVE: MILD TRICUSPID REGURGITATION MITRAL VALVE: TRACE MITRAL REGURGITATION PULMONIC VALVE: NORMAL AORTIC VALVE: TRACE AORTIC INSUFFICIENCY PERICARDIAL EFFUSION: NONE AORTIC ROOT: NORMAL LEFT VENTRICULAR WALL MOTION: NORMAL DOPPLER/COLOR FLOW: SEE BELOW COMMENTS: 1. NORMAL LEFT VENTRICULAR EJECTION FRACTION 60-65% 2. NORMAL WALL MOTION 3. NORMAL DIASTOLIC DYSFUNCTION 4. MILD TRICUSPID REGURGITATION, MITRAL REGURGITATION, AORTIC INSUFFICIENCY TECHNOLOGIST: HARLEY WILKS
[2022-08-12] MEDS: ESCITALOPRAM 20 MG TAB PO SCH (08:16)
[2022-08-12] MEDS: ASPIRIN 81 MG CHEWABLE TABLET PO SCH (08:16)
[2022-08-12] MEDS: APIXABAN 5 MG TABLET PO SCH ×2 (08:16→20:26)
[2022-08-12] MEDS: METOPROLOL XL 50 MG TAB PO SCH (08:19)
[2022-08-12] MEDS: AMLODIPINE 5 MG TAB PO SCH (08:19)
--- NOTE | 2022-08-12 08:51 | EKG ---
Test Date: 2022-08-10 Test Time: 14:57:56 Business Analytics Specialist: NATALIO MEASUREMENT RESULTS: Intervals: Rate: 103 MA: QRSD: 80 QT: 404 QTc: 529 Etters: P: MA: QRS: 100 T: 95 INTERPRETIVE STATEMENTS: Atrial fibrillation with rapid ventricular response Possible Right ventricular hypertrophy Nonspecific ST and T wave abnormality, probably digitalis effect Abnormal ECG Compared to ECG 08/10/2022 13:24:38 ST (T wave) deviation now present Supraventricular tachycardia no longer present Myocardial infarct finding no longer present Electronically Signed On 08-12-22 08:48:23 CDT by Bassam Grande
--- NOTE | 2022-08-12 08:51 | EKG ---
Test Date: 2022-08-10 Test Time: 13:24:38 Curriculum Development Specialist: NATALIO MEASUREMENT RESULTS: Intervals: Rate: 143 NC: QRSD: 82 QT: 372 QTc: 574 Wink: P: NC: QRS: 116 T: 27 INTERPRETIVE STATEMENTS: Supraventricular tachycardia Possible Right ventricular hypertrophy Cannot rule out Inferior infarct, age undetermined Abnormal ECG Compared to ECG 08/10/2022 06:43:29 Myocardial infarct finding now present Sinus rhythm no longer present First degree AV block no longer present Right-axis deviation no longer present Electronically Signed On 08-12-22 08:48:31 CDT by Bassam Grande
[2022-08-12] MEDS: ACETAMINOPHEN 325 MG TABLET PO PRN (12:28)
[2022-08-12] MEDS: Levofloxacin 750mg IV 750 MG/150 ML BAG IV SCH (12:29)
[2022-08-12] MEDS ORDERED: CEFTRIAXONE 1,000 MG in NA CHLORIDE 0.9% 50 ML IVPB ONE (12:44)
[2022-08-12] MEDS: TRAZODONE 50 MG TABLET PO SCH (20:26)
[2022-08-13 04:28] LABS: Magnesium 1.9 mg/dL (1.6-2.4); Phosphorus 3.4 mg/dL (2.5-4.9); Potassium 3.5 mEq/L (3.5-5.1)
[2022-08-13] MEDS ORDERED: POTASSIUM 25 MEQ EFFERV TAB PO ONE ×2 (05:02→06:00)
[2022-08-13] MEDS: APIXABAN 5 MG TABLET PO SCH (08:11)
[2022-08-13] MEDS: ESCITALOPRAM 20 MG TAB PO SCH (08:11)
[2022-08-13] MEDS: ASPIRIN 81 MG CHEWABLE TABLET PO SCH (08:11)
[2022-08-13] MEDS: AMLODIPINE 5 MG TAB PO SCH (08:11)
[2022-08-13] MEDS: METOPROLOL XL 50 MG TAB PO SCH (08:12)
[2022-08-13] MEDS ORDERED: CEFTRIAXONE 1,000 MG in NA CHLORIDE 0.9% 50 ML IVPB SCH (09:00)
[2022-08-13] MEDS: Levofloxacin 750mg IV 750 MG/150 ML BAG IV SCH (12:34)
[2022-08-13 12:40] VITALS: O2SAT 95
[2022-08-13 14:23] LABS: Absolute Lymphocytes (CBC) 1.1 K/uL (0.7-4.9); Lymphocytes % 15.6 % (15.3-44.8); MCV 95.4 fL (80-100); RBC Red Blood Cell Count 3.98 M/uL (4.33-5.43)
[2022-08-13 14:44] LABS: Albumin 2.2 g/dL (3.4-5.0); Bilirubin Total 0.2 mg/dL (0.2-1.0); Potassium 3.5 mEq/L (3.5-5.1)
[2022-08-13 16:48] VITALS: BP 156/67; TEMP 99
--- NOTE | 2022-08-15 19:36 | EKG ---
Test Date: 2022-08-11 Test Time: 23:37:35 Accounts Payable Accountant: WILLIAM MEASUREMENT RESULTS: Intervals: Rate: 85 IA: QRSD: 92 QT: 390 QTc: 464 [place]: P: IA: QRS: 102 T: 90 INTERPRETIVE STATEMENTS: Atrial fibrillation Rightward axis ST & T wave abnormality, consider anterior ischemia or digitalis effect Prolonged QT Abnormal ECG Compared to ECG 08/10/2022 14:57:56 Right-axis deviation now present Possible ischemia now present Prolonged QT interval now present ST (T wave) deviation still present Electronically Signed On 08-15-22 19:32:21 CDT by Sanjay Carcamo
== END 2022-08-13 16:55 | disposition home or self-care (01) | DRG 871 ==
LOC: ER 06:38 → ERHOLD 12:02 → 4TH 12:29
PROVIDERS: ADMIT Hospitalist; ATTEND Hospitalist
DX: A41.9 Sepsis, unspecified organism (principal); G93.41 Metabolic encephalopathy; I48.92 Unspecified atrial flutter; N39.0 Urinary tract infection, site not specified; I48.20 Chronic atrial fibrillation, unspecified; I10 Essential (primary) hypertension; I49.9 Cardiac arrhythmia, unspecified; F32.A Depression, unspecified; F17.210 Nicotine dependence, cigarettes, uncomplicated; Z88.0 Allergy status to penicillin; Z79.899 Other long term (current) drug therapy
CPT/HCPCS: 36415; 71045; 74176; 76377; 80048; 80053; 80076; 81001; 83605; 83735; 83880; 84100; 84439; 84443; 84484; 85025; 85610; 87040; 87086; 87088; 93005; 93306; 96374; 99285; J0696; J1650; J2405; J7030

== ENCOUNTER → 2023-04-08 | Emergency (ER) | payer OTHER ==
[2023-04-08 20:04] LABS: Absolute Lymphocytes (CBC) 1.1 K/uL (0.7-4.9); Lymphocytes % 11.2 % (15.3-44.8); MCV 96.6 fL (80-100); MPV 6.4 fL (7.6-11.3); Platelets 296 thou/uL (152-406); RBC Red Blood Cell Count 4.55 M/uL (4.33-5.43)
[2023-04-08 20:16] LABS: ALT/SGPT 22 U/L (16-61); AST/SGOT 13 U/L (15-37); Albumin 3.2 g/dL (3.4-5.0); Alkaline Phosphatase 77 U/L (45-117); BUN Blood Urea Nitrogen 29 mg/dL (7-18); Bicarbonate 23 mEq/L (21-32); Bilirubin Direct < 0.1 mg/dL (0-0.2); Bilirubin Indirect, Calculated ND mg/dL (0.2-0.8); Bilirubin Total 0.2 mg/dL (0.2-1.0); Glomerular Filtration Rate 65 ml/min (=/>90); Glucose Level 114 mg/dL (74-106); Magnesium 2.2 mg/dL (1.6-2.4); Protein, Total 7.2 g/dL (6.4-8.2); Sodium Level 134 mEq/L (136-145)
[2023-04-08 20:23] LABS: Troponin High Sensitivity 9.4 pg/mL (<58.9)
--- NOTE | 2023-04-08 21:00 | RAD REPORT ---
EXAM DESCRIPTION: CT - [id number] - 04/08/2023 8:25 pm CLINICAL HISTORY: Trauma, head and neck injury. TRAUMA COMPARISON: No comparisons TECHNIQUE: Axial thin cut noncontrast CT images of the head were obtained. Axial thin cut noncontrast CT images of the cervical spine were obtained. Multiplanar reformatted images were generated and reviewed. All CT scans are performed using dose optimization technique as appropriate and may include automated exposure control or mA/KV adjustment according to patient size. FINDINGS: CT HEAD WITHOUT CONTRAST: No acute hemorrhage, hydrocephalus or extra-axial collection is identified.No areas of brain edema or midline shift. The paranasal sinuses and mastoids are clear.The calvarium is intact. CT CERVICAL SPINE WITHOUT CONTRAST: No fracture or subluxation.Moderate degenerative changes with multilevel disc height loss and uncover tebral joint and facet arthropathy contributing to at least moderate neural foraminal narrowing on th e left at C4-5 and milder degrees of narrowing elsewhere.No prevertebral soft tissues swelling is rose mary ntified. IMPRESSION: No acute traumatic intracranial or cervical spine findings. Multilevel degenerative changes of the cervical spine as above.
--- NOTE | 2023-04-08 21:30 | ER ---
Nurse's Notes [facility] Name: Will Zavala Age: 77 yrs Sex: Male : 1945 Arrival Date: 04/08/2023 Time: 19:29 Bed 4 Private MD: Diagnosis: Mechanical fall;Closed head injury Presentation: 04/08 19:34 Chief complaint: Patient states: "I fell at home walking into my kitchen and hit my jw7 head. I did not loose consciousness but I did get a little sleepy afterwards". Coronavirus screen: At this time, the client does not indicate any symptoms associated with coronavirus-19. Ebola Screen: No symptoms or risks identified at this time. Initial Sepsis Screen: Does the patient meet any 2 criteria? No. Patient's initial sepsis screen is negative. Does the patient have a suspected source of infection? No. Patient's initial sepsis screen is negative. Risk Assessment: Do you want to hurt yourself or someone else? Patient reports no desire to harm self or others. Onset of symptoms was April 08, 2023. Care prior to arrival: IV initiated. 20 GA, in the left antecubital area. 19:34 Method Of Arrival: [facility]: [facility] jw7 19:34 Acuity: KILO 3 jw7 Triage Assessment: 19:36 General: Appears in no apparent distress. comfortable, Behavior is calm, cooperative, jw7 appropriate for age. Pain: Denies pain. EENT: No deficits noted. No signs and/or symptoms were reported regarding the EENT system. Neuro: Cortez Agitation-Sedation Scale (RASS): 0 - Alert and Calm Level of Consciousness is awake, alert, obeys commands, Oriented to person, place, time, situation. Cardiovascular: Heart tones S1 S2 present Capillary refill < 3 seconds Clubbing of nail beds is absent JVD is absent Patient's skin is warm and dry. Respiratory: Airway is patent Trachea midline Respiratory effort is even, unlabored, Respiratory pattern is regular, symmetrical, Breath sounds are clear bilaterally. GI: Abdomen is round non-distended, Bowel sounds present X 4 quads. Abd is soft and non tender X 4 quads. : No deficits noted. No signs and/or symptoms were reported regarding the genitourinary system. Derm: Skin is intact, is healthy with good turgor, Skin is dry, Skin is normal, Skin temperature is warm. Musculoskeletal: Circulation, motion, and sensation intact. Range of motion: intact in all extremities. Historical: - Allergies: 19:36 PENICILLINS; jw7 - Home Meds: 19:36 amlodipine oral [Active]; Lexapro Oral [Active]; metoprolol tartrate oral [Active]; jw7 Eliquis oral [Active]; - PMHx: 19:36 Depression; Hypertension; Irregular heart rate; Atrial fibrillation; jw7 - PSHx: 19:36 Prostate; jw7 - Immunization history:: Adult Immunizations up to date, Client reports receiving the 2nd dose of the Covid vaccine, Last tetanus immunization: < 5 years ago Pneumococcal vaccine is up to date, Flu vaccine is up to date. - Social history:: Smoking status: Patient reports the use of cigarette tobacco products, 1 pack per week , Patient uses alcohol, 1 glass of wine every night. Patient/guardian denies using street drugs, IV drugs. Screenin:41 [facility] ED Fall Risk Assessment (Adult) History of falling in the last 3 months, jw7 including since admission Yes- single mechanical fall (1 pt) Confusion or Disorientation No (0 pts) Intoxicated or Sedated No (0 pts) Impaired Gait No (0 pts) Mobility Assist Device Used No (0 pt) Altered Elimination No (0 pt) Score/Fall Risk Level 0 - 2 = Low Risk Oriented to surroundings, Maintained a safe environment, Educated pt \\T\\ family on fall prevention, incl call for assistance when getting out of bed. Abuse screen: Denies threats or abuse. Denies injuries from another. Nutritional screening: No deficits noted. Tuberculosis screening: No symptoms or risk factors identified. Assessment: 19:42 General: See Triage Assessment. jw7 Vital Signs: 19:32 BP 108 / 68; Pulse 71; Resp 18; Temp 97.8; Pulse Ox 98% on R/A; as9 19:34 BP 119 / 81; Pulse 70; Resp 70 S; Temp 97.8(O); Pulse Ox 96% on R/A; Weight 79.38 kg; jw7 Height 5 ft. 7 in. ; Pain 0/10; 21:36 BP 112 / 66; Pulse 69; Resp 16; Temp 98; Pulse Ox 99% ; rv 19:34 Body Mass Index 27.41 (79.38 kg, 170.18 cm) jw7 19:34 Pain Scale: Adult jw7 Navid Coma Score: 21:36 Eye Response: spontaneous(4). Motor Response: obeys commands(6). Verbal Response: rv oriented(5). Total: 15. ED Course: 19:33 Patient arrived in ED. lg3 19:33 Nickolas Whitfield MD is Attending Physician. rt 19:36 Triage completed. jw7 19:36 Arm band placed on. jw7 19:41 Patient has correct armband on for positive identification. Bed in low position. Call [facility] light in reach. Side rails up X 1. 19:41 Maintain EMS IV. Dressing intact. Good blood return noted. Site clean \\T\\ dry. Gauge \\T\\ jw 7 site: 20g LAC. 20:26 CT Head C Spine In Process Unspecified. EDMS 21:36 Bolivar Gomez RN is Primary Nurse. rv 21:36 No provider procedures requiring assistance completed. IV discontinued, intact, rv bleeding controlled, No redness/swelling at site. Pressure dressing applied. Administered Medications: No medications were administered Medication: 21:36 VIS not applicable for this client. rv Outcome: 21:29 Discharge ordered by MD. rt 21:37 Discharged to home ambulatory, with family, rv 21:37 Condition: good 21:37 Discharge instructions given to patient, family, Instructed on discharge instructions, follow up and referral plans. Demonstrated understanding of instructions, follow-up care, 21:37 Patient left the ED. rv Signatures: Dispatcher [employer] EDMS Bolivar Gomez RN RN rv Able, Lacie, RN RN lg3 Magdalena Rodriguez RN RN jw7 Nickolas Whitfield MD MD rt Chip Rangel, CAMI RN as9
--- NOTE | 2023-04-08 21:30 | EDPHYS ---
Physician Documentation [facility] Name: Will Zavala Age: 77 yrs Sex: Male : 1945 Arrival Date: 04/08/2023 Time: 19:29 Bed 4 Private MD: ED Physician Nickolas Whitfield HPI: 04/08 19:52 This 77 yrs old Male presents to ER via EMS with complaints of Fall. rt 19:52 Patient presents to the ED with a fall. Patient reports feeling somewhat lightheaded rt causing him to trip, falling hitting his head on a kitchen island denies loss of consciousness. Denies other acute complaints at this time. Symptoms are moderate in severity, no other aggravating or elevating factors.. Historical: - Allergies: 19:36 PENICILLINS; jw7 - Home Meds: 19:36 amlodipine oral [Active]; Lexapro Oral [Active]; metoprolol tartrate oral [Active]; jw7 Eliquis oral [Active]; - PMHx: 19:36 Depression; Hypertension; Irregular heart rate; Atrial fibrillation; jw7 - PSHx: 19:36 Prostate; jw7 - Immunization history:: Adult Immunizations up to date, Client reports receiving the 2nd dose of the Covid vaccine, Last tetanus immunization: < 5 years ago Pneumococcal vaccine is up to date, Flu vaccine is up to date. - Social history:: Smoking status: Patient reports the use of cigarette tobacco products, 1 pack per week , Patient uses alcohol, 1 glass of wine every night. Patient/guardian denies using street drugs, IV drugs. ROS: 19:52 Constitutional: Negative for fever, chills, and weight loss, Cardiovascular: Negative rt for chest pain, palpitations, and edema, Respiratory: Negative for shortness of breath, cough, wheezing, and pleuritic chest pain, Abdomen/GI: Negative for abdominal pain, nausea, vomiting, diarrhea, and constipation, MS/Extremity: Negative for injury and deformity, Skin: Negative for injury, rash, and discoloration, Psych: Negative for depression, anxiety, suicide ideation, homicidal ideation, and hallucinations, 19:52 Neuro: Positive for near syncope, Negative for altered mental status, Exam: 19:52 Constitutional: This is a well developed, well nourished patient who is awake, alert, rt and in no acute distress. Head/Face: Normocephalic, atraumatic. Chest/axilla: Normal chest wall appearance and motion. Nontender with no deformity. No lesions are appreciated. Cardiovascular: Regular rate and rhythm with a normal S1 and S2. No gallops, murmurs, or rubs. Normal PMI, no JVD. No pulse deficits. Respiratory: Lungs have equal breath sounds bilaterally, clear to auscultation and percussion. No rales, rhonchi or wheezes noted. No increased work of breathing, no retractions or nasal flaring. Abdomen/GI: Soft, non-tender, with normal bowel sounds. No distension or tympany. No guarding or rebound. No evidence of tenderness throughout. Skin: Warm, dry with normal turgor. Normal color with no rashes, no lesions, and no evidence of cellulitis. MS/ Extremity: Pulses equal, no cyanosis. Neurovascular intact. Full, normal range of motion. Neuro: Awake and alert, GCS 15, oriented to person, place, time, and situation. Cranial nerves II-XII grossly intact. Motor strength 5/5 in all extremities. Sensory grossly intact. Cerebellar exam normal. Normal gait. Psych: Awake, alert, with orientation to person, place and time. Behavior, mood, and affect are within normal limits. 19:52 ECG was reviewed by the Attending Physician. Vital Signs: 19:32 BP 108 / 68; Pulse 71; Resp 18; Temp 97.8; Pulse Ox 98% on R/A; as9 19:34 BP 119 / 81; Pulse 70; Resp 70 S; Temp 97.8(O); Pulse Ox 96% on R/A; Weight 79.38 kg; jw7 Height 5 ft. 7 in. ; Pain 0/10; 21:36 BP 112 / 66; Pulse 69; Resp 16; Temp 98; Pulse Ox 99% ; rv 19:34 Body Mass Index 27.41 (79.38 kg, 170.18 cm) [facility] 19:34 Pain Scale: Adult [facility] [place] Coma Score: 21:36 Eye Response: spontaneous(4). Motor Response: obeys commands(6). Verbal Response: rv oriented(5). Total: 15. MDM: 19:33 Patient medically screened. rt 21:30 Differential Diagnosis Dysrhythmia, anemia, electrolyte disturbance, mechanical fall, rt head contusion, intracranial hemorrhage, skull fracture. Data reviewed: vital signs, nurses notes, lab test result(s), EKG, radiologic studies. Independent interpretation of the following test(s) in the Emergency Department CT Scan: My interpretation is No intracranial hemorrhage seen on interpretation of CT scan images. Care significantly affected by the following chronic conditions: Atrial fibrillation. Counseling: I had a detailed discussion with the patient and/or guardian regarding the historical points, exam findings, and any diagnostic results supporting the discharge/admit diagnosis, lab results, radiology results, the need for outpatient follow up. Response to treatment: the patient's symptoms have resolved after treatment. 04/08 19:34 Order name: Basic Metabolic Panel; Complete Time: 20:36 rt 04/08 19:34 Order name: CBC with Diff; Complete Time: 20:36 rt 04/08 19:34 Order name: LFT's; Complete Time: 20:36 rt 04/08 19:34 Order name: Magnesium; Complete Time: 20:36 rt 04/08 19:34 Order name: Troponin HS; Complete Time: 20:36 rt 04/08 19:34 Order name: CT Head C Spine; Complete Time: 21:06 rt 04/08 19:34 Order name: EKG; Complete Time: 19:34 rt 04/08 19:34 Order name: Cardiac monitoring; Complete Time: 19:42 rt 04/08 19:34 Order name: EKG - Nurse/Tech; Complete Time: 19:42 rt 04/08 19:34 Order name: IV Saline Lock; Complete Time: 19:43 rt 04/08 19:34 Order name: Labs collected and sent; Complete Time: 19:49 rt 04/08 19:34 Order name: O2 Per Protocol; Complete Time: 19:42 rt 04/08 19:34 Order name: O2 Sat Monitoring; Complete Time: 19:42 rt EC:52 Rate is 70 beats/min. Rhythm is regular, A flutter with No ectopy. QRS [place] is Normal. rt MA interval is normal. QRS interval is normal. QT interval is normal. No Q waves. Administered Medications: No medications were administered Disposition Summary: 04/08/23 21:29 Discharge Ordered Notes: Location: Home rt Condition: Stable rt Diagnosis - Mechanical fall rt - Closed head injury rt Followup: rt - With: Private Physician - When: 2 - 3 days - Reason: Discharge Instructions: - Discharge Summary Sheet rt - Head Injury, Adult rt - Fall Prevention in the Home, Adult rt Forms: - Medication Reconciliation Form rt - Thank You Letter rt - Antibiotic Education rt - Prescription Opioid Use rt - Patient Portal Instructions rt - Leadership Thank You Letter rt Signatures: Dispatcher [employer] Magdalena Hunt RN RN jw7 Nickolas Whitfield MD MD rt
[2023-04-08 22:17] VITALS: BP 112/66; TEMP 98; O2SAT 99
--- NOTE | 2023-04-10 14:32 | EKG ---
Test Date: 2023-04-08 Test Time: 19:38:31 Gas Roller Operator: ENRIQUETA MEASUREMENT RESULTS: Intervals: Rate: 70 MO: QRSD: 92 QT: 418 QTc: 451 [place]: P: 77 MO: QRS: 106 T: 95 INTERPRETIVE STATEMENTS: Atrial flutter Septal infarct, age undetermined ST & T wave abnormality, consider anterolateral ischemia Abnormal ECG Compared to ECG 08/11/2022 23:37:35 Myocardial infarct finding now present Atrial fibrillation no longer present Right-axis deviation no longer present Prolonged QT interval no longer present ST (T wave) deviation still present Possible ischemia still present Electronically Signed On 04-10-23 14:27:53 PANAMA HAT HYDRAULIC PRESS OPERATOR by Bassam Grande
== END ==
LOC: ER 19:29
DX: S09.90XA Unspecified injury of head, initial encounter (principal); W01.198A Fall on same level from slipping, tripping and stumbling with subsequent striking against other object, initial encounter; I10 Essential (primary) hypertension; I48.91 Unspecified atrial fibrillation; Z79.01 Long term (current) use of anticoagulants; F17.210 Nicotine dependence, cigarettes, uncomplicated; Z88.0 Allergy status to penicillin
CPT/HCPCS: 36415; 70450; 72125; 80048; 80076; 83735; 84484; 85025; 93005; 99283

== ENCOUNTER 2023-10-09 19:55 | Emergency (ER) | payer OTHER ==
[2023-10-09 21:15] LABS: Absolute Eosinophils 0.2 K/uL (0-0.5); Absolute Lymphocytes (CBC) 1.8 K/uL (0.7-4.9); Absolute Monocytes 0.6 K/uL (0.1-1.3); Basophils % 0.6 % (0-1.3); Eosinophils % 2.7 % (0-4.4); Hematocrit 38.6 % (39.6-49.0); Lymphocytes % 27.1 % (15.3-44.8); MCH 32.9 pg (27.0-35.0); MCHC 33.6 g/dL (32.0-36.0); MCV 98.1 fL (80-100); MPV 6.7 fL (7.6-11.3); Monocytes % 8.4 % (3.3-12.3); Neutrophils % 61.2 % (41.7-73.7); Nucleated Red Blood Cells % 0.1 % (0-0); Platelets 224 thou/uL (152-406); RBC Red Blood Cell Count 3.93 M/uL (4.33-5.43); Red Cell Distribution Width 12.9 % (12.1-15.2)
--- NOTE | 2023-10-09 21:29 | RAD REPORT ---
EXAM DESCRIPTION: Denise Single View10/09/2023 9:04 pm CLINICAL HISTORY: Weakness COMPARISON: 2022 FINDINGS: The lungs appear clear of acute infiltrate. The heart is borderline enlarged IMPRESSION: No acute abnormalities displayed
[2023-10-09 21:58] LABS: ALT/SGPT 25 U/L (16-61); AST/SGOT 22 U/L (15-37); Albumin 3.1 g/dL (3.4-5.0); Albumin/Globulin Ratio 0.9 (1.1-1.8); Alkaline Phosphatase 67 U/L (45-117); Anion Gap 12.7 mEq/L (5.0-15.0); BUN Blood Urea Nitrogen 15 mg/dL (7-18); Bicarbonate 24 mEq/L (21-32); Bilirubin Total 0.3 mg/dL (0.2-1.0); Creatine Phosphokinase 43 U/L (39-308); Globulin 3.3 g/dL (2.3-3.5); Glomerular Filtration Rate 90 ml/min (=/>90); Glucose Level 97 mg/dL (74-106); Magnesium 1.8 mg/dL (1.6-2.4); Potassium 3.7 mEq/L (3.5-5.1); Protein, Total 6.4 g/dL (6.4-8.2); Sodium Level 137 mEq/L (136-145); Troponin High Sensitivity 6.1 pg/mL (<58.9)
[2023-10-09 22:00] LABS: Bilirubin Direct < 0.2 mg/dL (0-0.2); Bilirubin Indirect, Calculated 0.1 mg/dL (0.2-0.8)
--- NOTE | 2023-10-09 22:17 | ER ---
Nurse's Notes [facility] Name: Will Zavala Age: 78 yrs Sex: Male : 1945 Arrival Date: 10/09/2023 Time: 19:55 Bed 15 Private MD: Diagnosis: Generalized weakness Presentation: 10/08 20:39 Chief complaint: EMS states: Pt was outside cooking and started to feel weak. He jb4 lowered himself to the ground. Says this has happened before. Coronavirus screen: At this time, the client does not indicate any symptoms associated with coronavirus-19. Ebola Screen: No symptoms or risks identified at this time. Initial Sepsis Screen: Does the patient meet any 2 criteria? No. Patient's initial sepsis screen is negative. Does the patient have a suspected source of infection? No. Patient's initial sepsis screen is negative. Risk Assessment: Do you want to hurt yourself or someone else? Patient reports no desire to harm self or others. Onset of symptoms was October 09, 2023. Transition of care: patient was not received from another setting of care. 20:39 Method Of Arrival: EMS: [facility] jb4 20:39 Acuity: KILO 3 jb4 Historical: - Allergies: 20:42 PENICILLINS; jb4 - PMHx: 20:42 Atrial fibrillation; Depression; Hypertension; Irregular heart rate; jb4 - PSHx: 20:42 prostate; cardiac ablasion (prostate); jb4 - Immunization history:: Adult Immunizations up to date. - Infectious Disease History:: Denies. - Social history:: Smoking status: Patient denies any tobacco usage or history of. - Family history:: not pertinent. Screenin:32 [facility] ED Fall Risk Assessment (Adult) History of falling in the last 3 months, jb4 including since admission No falls in past 3 months (0 pts) Confusion or Disorientation No (0 pts) Intoxicated or Sedated No (0 pts) Impaired Gait No (0 pts) Mobility Assist Device Used No (0 pt) Altered Elimination No (0 pt) Score/Fall Risk Level 0 - 2 = Low Risk Oriented to surroundings, Maintained a safe environment. Abuse screen: Denies threats or abuse. Nutritional screening: No deficits noted. Tuberculosis screening: No symptoms or risk factors identified. Assessment: 21:00 General: Appears in no apparent distress. comfortable, Behavior is calm, cooperative, jb4 appropriate for age. Pain: Denies pain. Neuro: Level of Consciousness is awake, alert, obeys commands, Oriented to person, place, time, situation. Cardiovascular: Patient's skin is warm and dry. Respiratory: Airway is patent. GI: No signs and/or symptoms were reported involving the gastrointestinal system. : No signs and/or symptoms were reported regarding the genitourinary system. EENT: No signs and/or symptoms were reported regarding the EENT system. Derm: Skin is intact, Skin is pink, warm \T\ dry. Musculoskeletal: Circulation, motion, and sensation intact. Range of motion: intact in all extremities. 21:55 Reassessment: Patient appears in no apparent distress at this time. Patient and/or jb4 family updated on plan of care and expected duration. Pain level reassessed. Patient is alert, oriented x 3, equal unlabored respirations, skin warm/dry/pink. Vital Signs: 20:39 BP 114 / 64; Pulse 70; Resp 16; Temp 98.2(O); Pulse Ox 96% on R/A; Weight 78.02 kg (R); jb4 Height 5 ft. 7 in. (R); Pain 0/10; 22:32 BP 118 / 70; Pulse 71; Resp 16; Pulse Ox 96% on R/A; jb4 20:39 Body Mass Index 26.94 (78.02 kg, 170.18 cm) jb4 20:39 Pain Scale: Adult jb4 ED Course: 20:22 Patient arrived in ED. ss 20:22 Nickoals Whitfield MD is Attending Physician. rt 20:41 Triage completed. jb4 20:42 Arm band placed on right wrist. jb4 21:06 XRAY Chest (1 view) In Process Unspecified. EDMS 21:23 EKG done, by ED staff. vk 22:32 Patient has correct armband on for positive identification. Bed in low position. Call jb4 light in reach. Side rails up X 1. Provided Education on: discharge instructions.. 22:32 No provider procedures requiring assistance completed. Patient did not have IV access jb4 during this emergency room visit. Administered Medications: 21:05 Drug: NS 0.9% IV 1000 ml IV at 1 bolus Per protocol; 1000 mL bolus may finish ems bolus jb4 for total of 1000 mls Route: IV; Rate: 1 bolus; Site: left antecubital; 22:10 Follow up: Response: No adverse reaction; IV Status: Completed infusion; IV Intake: jb4 1000ml Medication: 22:32 VIS not applicable for this client. jb4 Intake: 22:10 IV: 1000ml; Total: 1000ml. jb4 Outcome: 22:16 Discharge ordered by MD. rt 22:32 Discharged to home via wheelchair, with family, jb4 22:32 Condition: stable 22:32 Discharge instructions given to patient, Instructed on discharge instructions, follow up and referral plans. Demonstrated understanding of instructions, follow-up care, 22:33 Patient left the ED. jb4 Signatures: Dispatcher [employer] EDMS Katia Oscar RN RN ss Virgilio Vasquez RN RN jb4 Nickolas Whitfield MD MD rt Bibi Grewal Corrections: (The following items were deleted from the chart) 22:34 22:34 IV Status: Completed infusion; IV Intake: 1000ml jb4 jb4
--- NOTE | 2023-10-09 22:17 | EDPHYS ---
Physician Documentation [facility] Name: Will Zavala Age: 78 yrs Sex: Male : 1945 Arrival Date: 10/09/2023 Time: 19:55 Bed 15 Private MD: ED Physician Nickolas Whitfield HPI: 10/08 23:36 This 78 yrs old Male presents to ER via EMS with complaints of Weakness. rt 23:36 Patient presents to the ED with generalized weakness, which seems to be improving. The rt patient was reportedly outside, went to turn on a grill, felt weak, lowered himself down, was unable to get up. The patient states that his symptoms have improved, states that he feels well in the ED received 500 cc of saline by EMS. Denies other acute complaints at this time, symptoms are moderate in severity, no other aggravating elevating factors.. Historical: - Allergies: 20:42 PENICILLINS; jb4 - PMHx: 20:42 Atrial fibrillation; Depression; Hypertension; Irregular heart rate; jb4 - PSHx: 20:42 prostate; cardiac ablasion (prostate); jb4 - Immunization history:: Adult Immunizations up to date. - Infectious Disease History:: Denies. - Social history:: Smoking status: Patient denies any tobacco usage or history of. - Family history:: not pertinent. ROS: 23:36 Constitutional: Negative for fever, chills, and weight loss, Cardiovascular: Negative rt for chest pain, palpitations, and edema, Respiratory: Negative for shortness of breath, cough, wheezing, and pleuritic chest pain, Abdomen/GI: Negative for abdominal pain, nausea, vomiting, diarrhea, and constipation, Skin: Negative for injury, rash, and discoloration, Neuro: Negative for headache, weakness, numbness, tingling, and seizure, 23:36 Neuro: Positive for weakness, Exam: 23:36 Constitutional: This is a well developed, well nourished patient who is awake, alert, rt and in no acute distress. Head/Face: Normocephalic, atraumatic. Chest/axilla: Normal chest wall appearance and motion. Nontender with no deformity. No lesions are appreciated. Cardiovascular: Regular rate and rhythm with a normal S1 and S2. No gallops, murmurs, or rubs. Normal PMI, no JVD. No pulse deficits. Respiratory: Lungs have equal breath sounds bilaterally, clear to auscultation and percussion. No rales, rhonchi or wheezes noted. No increased work of breathing, no retractions or nasal flaring. Abdomen/GI: Soft, non-tender, with normal bowel sounds. No distension or tympany. No guarding or rebound. No evidence of tenderness throughout. MS/ Extremity: Pulses equal, no cyanosis. Neurovascular intact. Full, normal range of motion. Neuro: Awake and alert, GCS 15, oriented to person, place, time, and situation. Cranial nerves II-XII grossly intact. Motor strength 5/5 in all extremities. Sensory grossly intact. Cerebellar exam normal. Normal gait. 23:36 ECG was reviewed by the Attending Physician. rt Vital Signs: 20:39 BP 114 / 64; Pulse 70; Resp 16; Temp 98.2(O); Pulse Ox 96% on R/A; Weight 78.02 kg (R); jb4 Height 5 ft. 7 in. (R); Pain 0/10; 22:32 BP 118 / 70; Pulse 71; Resp 16; Pulse Ox 96% on R/A; jb4 20:39 Body Mass Index 26.94 (78.02 kg, 170.18 cm) jb4 20:39 Pain Scale: Adult jb4 MDM: 20:25 Patient medically screened. rt 23:36 Differential Diagnosis Weakness, dehydration, electrolyte disturbance. Data reviewed: rt vital signs, nurses notes, lab test result(s), EKG, radiologic studies. Consideration of Admission/Observation Escalation of care including admission/observation considered. Symptoms resolved, unremarkable workup, patient ambulatory that difficulty, no indications for admission. I considered the following discharge prescriptions or medication management in the emergency department Medications were administered in the Emergency Department. See MAR. Independent interpretation of the following test(s) in the Emergency Department X-Ray: My interpretation is No consolidation seen on my interpretation of x-ray images. Care significantly affected by the following chronic conditions: Hypertension. Counseling: I had a detailed discussion with the patient and/or guardian regarding the historical points, exam findings, and any diagnostic results supporting the discharge/admit diagnosis, lab results, radiology results, the need for outpatient follow up, to return to the emergency department if symptoms worsen or persist or if there are any questions or concerns that arise at home. Response to treatment: the patient's symptoms have resolved after treatment. 10/08 20:46 Order name: Basic Metabolic Panel; Complete Time: : rt 10/08 20:46 Order name: CBC with Diff; Complete Time: :36 rt 10/08 20:46 Order name: LFT's; Complete Time: 22:11 rt 10/08 20:46 Order name: Magnesium; Complete Time: : rt 10/08 20:46 Order name: Troponin HS; Complete Time: : rt 10/08 20:46 Order name: CPK; Complete Time: : rt 10/08 20:46 Order name: XRAY Chest (1 view); Complete Time: : rt 10/08 20:46 Order name: EKG; Complete Time: : rt 10/08 20:46 Order name: Cardiac monitoring; Complete Time: :23 rt 10/08 20:46 Order name: EKG - Nurse/Tech; Complete Time: : rt 10/08 20:46 Order name: IV Saline Lock; Complete Time: : rt 10/08 20:46 Order name: Labs collected and sent; Complete Time: : rt 10/08 20:46 Order name: O2 Per Protocol; Complete Time: : rt 10/08 20:46 Order name: O2 Sat Monitoring; Complete Time: 21: rt EC:36 Rate is 73 beats/min. Rhythm is regular, 1st Degree Block with No ectopy. QRS [place] is rt Normal. MO interval is normal. QRS interval is normal. QT interval is normal. No Q waves. No ST changes noted. Interpreted by me. Administered Medications: 21:05 Drug: NS 0.9% IV 1000 ml IV at 1 bolus Per protocol; 1000 mL bolus may finish ems bolus jb4 for total of 1000 mls Route: IV; Rate: 1 bolus; Site: left antecubital; 22:10 Follow up: Response: No adverse reaction; IV Status: Completed infusion; IV Intake: jb4 1000ml Disposition Summary: 10/09/23 22:16 Discharge Ordered Notes: Location: Home rt Problem: new rt Symptoms: have improved rt Condition: Stable rt Diagnosis - Generalized weakness rt Followup: rt - With: Private Physician - When: 2 - 3 days - Reason: Discharge Instructions: - Discharge Summary Sheet rt - Weakness rt Forms: - Medication Reconciliation Form rt - Antibiotic Education rt - Prescription Opioid Use rt - Patient Portal Instructions rt - Leadership Thank You Letter rt Signatures: Dispatcher [employer] Virgilio Ortega RN RN jb4 Nickolas Whitfield MD MD rt
[2023-10-09 22:39] VITALS: TEMP 98.2; O2SAT 96
[2023-10-09 22:40] VITALS: BP 118/70
--- NOTE | 2023-10-10 12:39 | EKG ---
Test Date: 2023-10-09 Test Time: 21:19:27 Financial Reporting Specialist: VINNIE MEASUREMENT RESULTS: Intervals: Rate: 73 NM: 276 QRSD: 100 QT: 440 QTc: 484 [place]: P: 74 NM: 276 QRS: 81 T: 82 INTERPRETIVE STATEMENTS: Sinus rhythm with 1st degree AV block Septal infarct, age undetermined Abnormal ECG Compared to ECG 04/08/2023 19:38:31 First degree AV block now present Atrial flutter no longer present ST (T wave) deviation no longer present Possible ischemia no longer present Myocardial infarct finding still present Electronically Signed On 10-10-23 12:37:56 CDT by Paul Yeager
== END 2023-10-09 22:33 | disposition home or self-care (01) ==
LOC: ER 19:55
DX: R53.1 Weakness (principal); I10 Essential (primary) hypertension; I48.91 Unspecified atrial fibrillation
CPT/HCPCS: 36415; 71045; 80048; 80076; 82550; 83735; 84484; 85025; 93005; 96360; 99284

== ENCOUNTER 2024-03-13 16:56 | Emergency (ER) | payer OTHER ==
--- NOTE | 2024-03-13 17:29 | ER ---
Nurse's Notes [facility] Name: Will Zavala Age: 78 yrs Sex: Male : 1945 Arrival Date: 03/13/2024 Time: 16:56 Bed IW5 Private MD: Diagnosis: Dental root caries Presentation: 03/13 17:22 Chief complaint: Patient states: RIGHT UPPER TOOTH PAIN X 1 WEEK. Coronavirus screen: db Client denies travel out of the [place] in the last 14 days. At this time, the client does not indicate any symptoms associated with coronavirus-19. Ebola Screen: Patient negative for fever greater than or equal to 101.5 degrees Fahrenheit, and additional compatible Ebola Virus Disease symptoms Patient denies exposure to infectious person. Patient denies travel to an Ebola-affected area in the 21 days before illness onset. No symptoms or risks identified at this time. Initial Sepsis Screen: Does the patient meet any 2 criteria? No. Patient's initial sepsis screen is negative. Does the patient have a suspected source of infection? No. Patient's initial sepsis screen is negative. Risk Assessment: Do you want to hurt yourself or someone else? Patient reports no desire to harm self or others. Onset of symptoms was March 13, 2024. 17:22 Method Of Arrival: Ambulatory db 17:22 Acuity: KILO 4 db Triage Assessment: 17:22 General: Appears in no apparent distress. comfortable, Behavior is calm, cooperative. db Pain: Complains of pain in mouth. EENT: Reports pain in mouth. Historical: - Allergies: 17:22 PENICILLINS; db - PMHx: 17:22 Atrial fibrillation; Depression; Hypertension; Irregular heart rate; db - PSHx: 17:22 cardiac ablasion (te); prostate; db - Immunization history:: Adult Immunizations unknown. - Infectious Disease History:: Denies. - Social history:: Smoking status: Patient denies any tobacco usage or history of. Screenin:37 [facility] ED Fall Risk Assessment (Adult) History of falling in the last 3 months, db including since admission No falls in past 3 months (0 pts) Confusion or Disorientation No (0 pts) Intoxicated or Sedated No (0 pts) Impaired Gait No (0 pts) Mobility Assist Device Used No (0 pt) Altered Elimination No (0 pt) Score/Fall Risk Level 0 - 2 = Low Risk Oriented to surroundings, Maintained a safe environment. Abuse screen: Denies threats or abuse. Denies injuries from another. Nutritional screening: No deficits noted. Tuberculosis screening: No symptoms or risk factors identified. Assessment: 17:37 Reassessment: Patient appears in no apparent distress at this time. Patient and/or db family updated on plan of care and expected duration. Pain level reassessed. Patient is alert, oriented x 3, equal unlabored respirations, skin warm/dry/pink. General: Appears in no apparent distress. uncomfortable, Behavior is calm, cooperative. Vital Signs: 17:22 BP 111 / 61; Pulse 73; Resp 18; Temp 97.1; Pulse Ox 95% ; Weight 78.47 kg; Height 5 ft. db 7 in. ; 17:22 Body Mass Index 27.10 (78.47 kg, 170.18 cm) db ED Course: 17:11 Patient arrived in ED. al6 17:12 [facility] Cosme [facility]5 17:12 Amor Arteaga MD is Attending Physician. dr5 17:22 Triage completed. db 17:22 Arm band placed on Patient placed in an exam room, in waiting room. db 17:37 Patient has correct armband on for positive identification. Provided Education on: db DISCHARGE. 17:37 No provider procedures requiring assistance completed. Patient did not have IV access db during this emergency room visit. Administered Medications: No medications were administered Medication: 17:37 VIS not applicable for this client. db Outcome: 17:29 Discharge ordered by MD. dr5 17:37 Discharged to home ambulatory, db 17:37 Condition: stable 17:37 Discharge instructions given to patient, Instructed on discharge instructions, follow up and referral plans. Prescriptions given X 2, 17:38 Patient left the ED. db Signatures: Zunilda Chamberlain, RN RN Colby Boateng FNP-C EXPANDER MACHINE OPERATOR-Cdr5 Марина Avila al6
--- NOTE | 2024-03-13 17:30 | EDPHYS ---
Physician Documentation [facility] Name: Will Zavala Age: 78 yrs Sex: Male : 1945 Arrival Date: 03/13/2024 Time: 16:56 Bed IW5 Private MD: ED Physician Amor Arteaga HPI: 03/13 18:23 This 78 yrs old Male presents to ER via Ambulatory with complaints of dr5 Toothache. 18:23 Onset: The symptoms/episode began/occurred 1 week(s) ago. Duration: The symptoms are dr5 continuous. Patient is a 78-year-old male with history of A-fib, depression, hypertension coming in with 1 week of dental pain with subjective fevers at home. Patient reports that he knows he has bad teeth and needs to have dental work completed.. Historical: - Allergies: 17:22 PENICILLINS; db - PMHx: 17:22 Atrial fibrillation; Depression; Hypertension; Irregular heart rate; db - PSHx: 17:22 cardiac ablasion (te); prostate; db - Immunization history:: Adult Immunizations unknown. - Infectious Disease History:: Denies. - Social history:: Smoking status: Patient denies any tobacco usage or history of. ROS: 18:23 Constitutional: as per hpi dr5 Exam: 18:23 Constitutional: This is a well developed, well nourished patient who is awake, alert, dr5 and in no acute distress. Head/Face: Normocephalic, atraumatic. Eyes: Pupils equal round and reactive to light, extra-ocular motions intact. Lids and lashes normal. Conjunctiva and sclera are non-icteric and not injected. Cornea within normal limits. Periorbital areas with no swelling, redness, or edema. 03/14 01:02 Chest/axilla: Normal chest wall appearance and motion. Nontender with no deformity. dr5 No lesions are appreciated. Cardiovascular: Regular rate and rhythm with a normal S1 and S2. Normal PMI, no JVD. No pulse deficits. Respiratory: Lungs have equal breath sounds bilaterally, clear to auscultation. No rales, rhonchi or wheezes noted. No increased work of breathing, no retractions or nasal flaring. Back: No spinal tenderness. No costovertebral tenderness. Full range of motion. Skin: Warm, dry with normal turgor. Normal color with no rashes, no lesions, and no evidence of cellulitis. MS/ Extremity: Pulses equal, no cyanosis. Neurovascular intact. Full, normal range of motion. Neuro: Awake and alert, GCS 15, oriented to person, place, time, and situation. Cranial nerves II-XII grossly intact. Motor strength 5/5 in all extremities. Sensory grossly intact. Cerebellar exam normal. Normal gait. ENT: External ear(s): are unremarkable, Ear canal(s): are normal, TM's: are normal, Nose: is normal, Mouth: Gums: reddened, swollen, on the frenulum and gums, drooling, is not appreciated, No trismus noted., Vital Signs: 03/13 17:22 BP 111 / 61; Pulse 73; Resp 18; Temp 97.1; Pulse Ox 95% ; Weight 78.47 kg; Height 5 ft. db 7 in. ; 17:22 Body Mass Index 27.10 (78.47 kg, 170.18 cm) db MDM: 17:16 Medical Screening Exam initiated dr5 03/14 00:58 Differential diagnosis:. dr5 01:02 Differential diagnosis: dental caries, dental abscess, pericoronitis. Data reviewed: dr5 vital signs, nurses notes. Care significantly affected by the following chronic conditions: Depression, hypertension, A-fib. Care significantly affected by the following Social Determinants of Health: Poor access to healthcare and/or lack of insurance, Poor access to transportation, Problems related to employment. Counseling: I had a detailed discussion with the patient and/or guardian regarding the historical points, exam findings, and any diagnostic results supporting the discharge/admit diagnosis, the need for outpatient follow up, for definitive care, a dentist, a family practitioner, to return to the emergency department if symptoms worsen or persist or if there are any questions or concerns that arise at home. ED course: Will cover patient's developing dental abscess with clindamycin. Recommended patient follow-up with dentist this week. Patient is agreeable to plan. All questions answered. Patient will follow-up this week with dentist.. Administered Medications: No medications were administered Disposition: 07:05 Co-signature as Attending Physician, Amor Arteaga MD I reviewed the patient's care rn provided by the Advanced Practice Provider and agree with the diagnosis and treatment plan. Disposition Summary: 03/13/24 17:29 Discharge Ordered Notes: Location: Home dr5 Condition: Stable dr5 Diagnosis - Dental root caries dr5 Followup: dr5 - With: Emergency Department - When: As needed - Reason: Worsening of condition Followup: dr5 - With: Private Physician - When: 1 - 2 days - Reason: Recheck today's complaints, Continuance of care, Re-evaluation by your physician Discharge Instructions: - Discharge Summary Sheet dr5 - Dental Abscess dr5 - Dental Pain dr5 Forms: - Medication Reconciliation Form dr5 - Antibiotic Education dr5 - Patient Portal Instructions dr5 - Leadership Thank You Letter dr5 Prescriptions: - Clindamycin HCl 300 mg Oral capsule - take 1 capsule ORAL route every 8 hours for 7 days; 21 capsule; Refills: 0, dr5 Product Selection Permitted - Tramadol 50 mg Oral Tablet - take 1 tablet ORAL route every 8 hours as needed; 12 tablet; Refills: 0, dr5 Product Selection Permitted Signatures: Amor Arteaga MD MD rn Benton, Danielle, RN RN db Rhodes, Dustin, ENVIRONMENTAL PROTECTION FORESTER-C ENVIRONMENTAL PROTECTION FORESTER-Cdr5 Corrections: (The following items were deleted from the chart) 01:03 03/13 18:23 Constitutional: This is a well developed, well nourished patient who is dr5 awake, alert, and in no acute distress. Head/Face: Normocephalic, atraumatic. Eyes: Pupils equal round and reactive to light, extra-ocular motions intact. Lids and lashes normal. Conjunctiva and sclera are non-icteric and not injected. Cornea within normal limits. Periorbital areas with no swelling, redness, or edema. dr5
[2024-03-14 01:56] VITALS: BP 111/61; TEMP 97.1; O2SAT 95
== END 2024-03-13 17:38 | disposition home or self-care (01) ==
LOC: ER 16:56
DX: K02.7 Dental root caries (principal)